=== PATIENT | male | born 1955 | race Caucasian/White ===

== ENCOUNTER 2019-09-29 16:22 | Observation (INO) | payer OTHER ==
[2019-09-29 16:44] VITALS: BMI 25.0
--- NOTE | 2019-09-29 16:44 | PDOC ---
History of Present Illness - General Chief Complaint: Chest Pain Stated Complaint: CP Time Seen by Provider: 09/29/19 16:43 Past History - Medical History Allergies/Adverse Reactions: Allergies Allergy/AdvReac Type Severity Reaction Status Date / Time No Known Allergies Allergy Verified 09/29/19 16:32 Home Medications: Ambulatory Orders Amlodipine Besylate [Norvasc -] 10 mg PO DAILY 09/29/19 Aspirin [Ecotrin] 81 mg PO DAILY 09/29/19 Atorvastatin Ca [Lipitor] 80 mg PO HS 09/29/19 Levetiracetam 500 mg PO BID 09/29/19 Metoprolol Tartrate [Lopressor -] 25 mg PO BID 09/29/19 Sertraline HCl [Zoloft -] 1.5 tab PO DAILY 09/29/19 Cardiac Disorders: Yes (CAD) COPD: No Diabetes: Yes (TYPE 1) HTN: Yes - Surgical History Cardiac Surgery: Yes (CARDIAC STENT) - Psycho-Social/Smoking History Smoking History: Current every day smoker Have you smoked in the past 12 months: Yes Number of Cigarettes Smoked Daily: 20 Information on smoking cessation initiated: No - Substance Abuse Hx (Audit-C & DAST Scrn) How often the patient has a drink containing alcohol: 4 0r more times/wk Number of drinks the patient has on a typical day: 10 or more How often the patient has six or more drinks on one occasion: Daily or almost daily Score: In Men: 4 or > Positive; In Women: 3 or > Positive: 12 Screen Result (Pos requires Nsg. Audit-10AR): Positive In the last yr the pt used illegal drug/Rx for NonMed reason: No Score: Yes response is considered Positive: 0 Screen Result (Positive result requires Nsg. DAST-10): Negative *Physical Exam - Vital Signs Last Vital Signs Temp Pulse Resp BP Pulse Ox 98.5 F 95 H 18 132/90 100 09/29/19 16:32 09/29/19 16:32 09/29/19 16:32 09/29/19 16:32 09/29/19 16:32 Heart Score/ECG Review - History History: Moderately suspicious - Electrocardiogram EKG: Non specific repolarization disturbance - Age Age: 45-65 - Risk Factors Risk Factors Heart Score: Yes Hx Hypercholesterolemia, Yes Hx Hypertension, Yes Hx Diabetes, Yes Smoking History Based on the list above the patient has:: >/=3 risk factors or Hx atherosclerotic disease - Troponin Troponin: </= normal limit - Score Heart Score - Total: 5 ED Treatment Course - LABORATORY CBC & Chemistry Diagram: 09/29/19 17:15 09/29/19 17:15 Medical Decision Making - Medical Decision Making 09/29/19 16:56 63yo M hx HTN, HLD, IDDM, CAD s/p stents, alcohol abuse (two 40s of beer daily, last drink yesterday, no hx withdrawal seizures), smoking, and anxiety sent from [facility] requesting detox c/o 3 weeks of intermittent substernal pressure-type chest pain, SOB, diaphoresis, palpitations, anxiety, and lightheadedness. Today endorses withdrawal-like sx including tremors, nausea and vomiting, diaphoresis, anxiety, and mild headache. Endorses hx heroine abuse, last 1 year ago. Denies current drug use. Denies falls, head injury. Hungry, hasn't eaten today. PCP - can't remember her name, Lazaro on rx bottles ROS: Constitutional: Positive for diaphoresis. Negative for chills, fever, fatigue. HENT: Negative for sore throat, rhinorrhea, congestion. Eyes: Negative for visual disturbance. Respiratory: Positive for shortness of breath. Negative for cough, and wheezing. Cardiovascular: Positive for chest pain, palpitations. Negative for leg swelling. Gastrointestinal: Positive for nausea, and vomiting. Negative for abdominal pain, blood in stool, constipation, diarrhea. Genitourinary: Negative for dysuria, flank pain, and hematuria. Musculoskeletal: Negative for myalgias, back pain, and neck pain. Skin: Negative for rash. Neurological: Positive for light-headedness, headache. Negative for dizziness, vertigo, syncope, weakness, numbness. Psychiatric/Behavioral: Positive for alcohol use. Negative for behavioral problems and confusion. PE: Gen: Alert, NAD, comfortable-appearing, tremors, diaphoretic HEENT: PERRL, EOMI, dry MM, NCAT. No conjunctival pallor. Sclera are non- icteric. Oropharynx is clear. +tongue fasciculations CV: Regular rate and rhythm. No murmurs, rubs, or gallops. PULM: No resp distress. CTAB, no wheezes, rales, or rhonchi. ABD: soft, NT/ND, no rebound tenderness or guarding, no CVA tenderness. BACK: No TTP of c/t/l-spine. No step-offs or deformities. MSK: No bony deformities. 2+ pulses in all extremities. NEURO: Slight delay in responses and slowed speech. AAOx3. PERRL. CN 2-12 intact. 5/5 strength in all extremities. Sensation to light touch intact in all extremities. No pronator drift. No dysmetria. No dysdiadochokinesia. No abnormal nystagmus. Normal gait. EXTREMITIES: No cyanosis. No clubbing. No edema. No calf tenderness. PSYCH: Normal mood and thought pattern. SKIN: Warm and diaphoretic. Normal capillary refill. No rashes. No jaundice. MDM: 63yo M hx HTN, HLD, IDDM, CAD s/p stents, alcohol abuse (two 40s of beer daily, last drink yesterday, no hx withdrawal seizures), smoking, and anxiety sent from [facility] requesting detox with 1 day withdrawal-like sx and 3 weeks of intermittent substernal pressure-type chest pain, SOB, diaphoresis, palpitations, anxiety, and lightheadedness. Hemodynamically stable, afebrile, neurologically intact. Ddx: alcohol withdrawal, intox, ACS/AK (HEART score 5), arrhythmia, anxiety, PNA, COPD exacerbation, thyroid pathology, UTI, infection, metabolic derangement, anemia -EKG -CXR -CBC,CMP,Mg,Phos,Cardiac profile,TSH,alcohol,UA/UC -IVF -BGM -Aspirin -Librium 100 -Dispo: pending workup and reassessment, likely d/c home 09/29/19 18:32 Labs reviewed. Notable for WBC 16.4, K 3.0, Phos 2.3, Gluc 62, elevated AST/ALT/ALP/Tbili -Pt eating food -K-dur 40 -Phos-Na-K packet EKG reviewed: normal sinus rhythm, 91bpm, normal axis, normal intervals,QTc 452ms, nonspecific ST abnormality, no ST elevations or depressions, no priors for comparison CXR reviewed: No acute pathology. 3mm nodule in R lung apex laterally nonspecific and likely granuloma. Admit for ACS eval and withdrawal Discharge - Discharge Information Problems reviewed: Yes Clinical Impression/Diagnosis: Alcohol withdrawal, Chest pain Condition: Stable - Admission Yes - Follow up/Referral - Patient Discharge Instructions - Post Discharge Activity
[2019-09-29] MEDS ORDERED: SODIUM CHLORIDE 0.9% 500 ML INFUS.BAG IV ONE (16:56)
[2019-09-29] MEDS ORDERED: LORazepam 2 MG TABLET PO SCH (17:00)
[2019-09-29] MEDS ORDERED: chlordiazePOXIDE HCL 25 MG CAPSULE PO ONE (17:05)
[2019-09-29 17:29] LABS: BASO % 0.3 % (0-2.0); EOS % 0.2 % (0-4.5); HEMATOCRIT 40.5 % (35.4-49); HEMOGLOBIN 13.9 GM/dL (11.7-16.9); LYMPH % 14.4 % (8-40); MCH 31.1 pg (25.7-33.7); MCHC 34.2 g/dl (32.0-35.9); MEAN PLT VOLUME 9.3 fl (7.5-11.1); MONO % 7.2 % (3.8-10.2); NEUT % 77.9 % (42.8-82.8); PLATELET COUNT 236 K/MM3 (134-434); RBC 4.46 M/mm3 (4.00-5.60); RDW 14.4 % (11.9-15.9); WHITE BLOOD COUNT 16.4 K/mm3 (4.0-10.0)
[2019-09-29 17:39] LABS: INR 0.98 (0.83-1.09); PROTHROMBIN TIME (PATIENT) 11.6 SEC (9.7-13.0)
[2019-09-29 17:41] LABS: ACTIVATED PTT 17.6 SECONDS (25.2-36.5)
[2019-09-29] MEDS ORDERED: chlordiazePOXIDE HCL 25 MG CAPSULE ONE (17:51)
--- NOTE | 2019-09-29 17:55 | PDOC ---
Documentation entered by Sarthak Brown SCRIBE, acting as scribe for Eh Magana MD. Eh Magana MD: This documentation has been prepared by the Stephanie metcalf Nirvannie, SCRIBE, under my direction and personally reviewed by me in its entirety. I confirm that the documentation accurately reflects all work, treatment, procedures, and medical decision making performed by me. Attending Attestation - Resident Resident Name: Jenny Izaguirre - ED Attending Attestation I have performed the following: I have examined & evaluated the patient, The case was reviewed & discussed with the resident, I agree w/resident's findings & plan, Exceptions are as noted - HPI HPI: 09/29/19 17:33 The patient is a 63 year old male with a significant past medical history of HTN, HLD, possible DM, CAD (s/p cardiac stenting), alcohol abuse (two 40s of beer daily, last drink yesterday, no history of withdrawal seizures), anxiety, and medication noncompliance who presents to the ED via EMS from [facility] with 3 weeks of intermittent, pressure like, substernal chest pain with associated shortness of breath, diaphoresis, palpitations, and lightheadedness. - Physicial Exam PE: 09/29/19 17:55 See resident exam - Medical Decision Making 09/29/19 17:55 63 M with chest pain. Will r/o ACS given significant cardiac history. Pt also with mild ETOH withdrawal. - Labs, trop - CXR - Librium Discharge - Discharge Information Problems reviewed: Yes Clinical Impression/Diagnosis: Alcohol withdrawal, Chest pain Condition: Stable - Additional Discharge Information - Follow up/Referral - Patient Discharge Instructions - Post Discharge Activity
[2019-09-29 18:15] LABS: ALBUMIN 3.2 g/dl (3.4-5.0); ALK PHOS 182 U/L (45-117); ANION GAP 11 MMOL/L (8-16); BILIRUBIN,TOTAL 1.2 mg/dL (0.2-1); BLOOD UREA NITROGEN 19.7 mg/dL (7-18); CALCIUM 8.7 mg/dL (8.5-10.1); CHLORIDE 107 mmol/L (98-107); CO2 23 mmol/L (21-32); CREATININE 0.7 mg/dL (0.55-1.3); GLUCOSE,RANDOM 62 mg/dL (74-106); LIPASE 54 U/L (73-393); MAGNESIUM 1.9 mg/dL (1.8-2.4); PHOSPHOROUS 2.3 mg/dL (2.5-4.9); SGOT/AST 362 U/L (15-37); SGPT/ALT 147 U/L (13-61); SODIUM 141 mmol/L (136-145); TOT PROT 5.8 g/dl (6.4-8.2)
[2019-09-29] MEDS ORDERED: NAPH,MB-DB/K PH,MBDB POWDER PACKET PO ONE (18:36)
[2019-09-29] MEDS ORDERED: POTASSIUM CHLORIDE TABS 20 MEQ TABLET.ER (FP) PO ONE ×2 (18:36→18:48)
[2019-09-29] MEDS ORDERED: ASPIRIN 81 MG CHEWABLE TABLETS PO ONE (18:37)
[2019-09-29] MEDS ORDERED: D5-1/2NS+40 MEQ KCL - 40 MEQ/1,000 ML INFUS.BAG IV SCH (18:45)
[2019-09-29] MEDS ORDERED: ASPIRIN COATED 81 MG TABLET.EC ONE (18:48)
[2019-09-29] MEDS ORDERED: NAPH,MB-DB/K PH,MBDB POWDER PACKET ONE (18:48)
--- NOTE | 2019-09-29 19:43 | PN ---
Teaching Attending Note Name of Resident: Tesfaye Rae ATTENDING PHYSICIAN STATEMENT I saw and evaluated the patient. I reviewed the resident's note and discussed the case with the resident. I agree with the resident's findings and plan as documented. SUBJECTIVE: Patient is a 63 year old man with a PMH of HTN, HLD, Insulin-treatd DM, CAD (s/p stents), Alcohol abuse (two 40s of beer daily, last drink yesterday, no history of withdrawal seizures), Heroin abuse, Tobacco use and Anxiety sent from [facility] with 3 weeks of intermittent substernal pressure-type chest pain, SOB, diaphoresis, palpitations, anxiety, and lightheadedness. Today endorses withdrawal-like symptoms including tremors, nausea and vomiting, diaphoresis, anxiety, and mild headache. Denies current drug use. Denies falls, head injury. Wants to eat. 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 Lives alone. No sick contacts or recent travels. Family history is unremarkable. OBJECTIVE: Alert Vital Signs Period Temp Pulse Resp BP Sys/Taylor Pulse Ox Last 24 Hr 98.0 F-98.5 F 87-95 18 117-132/74-90 97-100 HEENT: No Jaundice, eye redness or discharge, PERRLA, EOMI. Normocephalic, atraumatic. External ears are normal and hearing is grossly intact. No nasal discharge. Neck: Supple, nontender. No palpable adenopathy or thyromegaly. No JVD Chest: Good effort. Clear to auscultation and percussion. Heart: Regular. No S3, rub or murmur Abdomen: Not distended, soft, nontender and no HSM. No rebound or guarding. Normal bowel sounds. Ext: Peripheral pulses intact. No leg edema. Skin: Warm and dry. No petechiae, rash or ecchymosis. Neuro: Alert. Oriented x3. No asterexis or tremors. CN 2-12 grossly intact. Sensation grossly intact in all four extremities and DTR are symmetric. Psych: Appropriate mood and affect. Good insight. Current Medications Generic Name Dose Route Start Last Admin Trade Name Freq PRN Reason Stop Dose Admin Albuterol Sulfate 2 puff 09/29/19 21:11 Ventolin Hfa Inhaler - IH Q4H PRN SHORT OF BREATH/WHEEZING Enoxaparin Sodium 40 mg 09/30/19 10:00 Lovenox - SQ DAILY [facility] Folic Acid 1 mg 09/30/19 10:00 Folic Acid - PO DAILY [facility] Dextrose/Sodium Chloride 40 meq in 1,000 mls @ 75 mls/hr 09/29/19 18:45 D5-1/2ns+40 Meq Kcl - IV ASDIR [facility] Insulin Aspart 1 vial 09/29/19 22:00 Novolog Vial Sliding Scale - SQ ACHS [facility] Protocol Lorazepam 2 mg 09/29/19 23:00 Ativan PO 09/30/19 23:01 0500,1100,1700,2300 [facility] Lorazepam 0.5 mg 10/02/19 05:00 Ativan - PO 10/02/19 23:01 Q6H [facility] Lorazepam 0.5 mg 10/02/19 00:00 Ativan - PO 10/02/19 23:59 Q4H PRN Symptoms of Withdrawal Lorazepam 1 mg 10/01/19 05:00 Ativan - PO 10/01/19 23:01 0500,1100,1700,2300 [facility] Lorazepam 1 mg 09/29/19 20:49 Ativan - PO 10/01/19 23:59 Q4H PRN Symptoms of Withdrawal Lorazepam 0.5 mg 10/03/19 05:00 Ativan - PO 10/03/19 05:01 ONCE ONE Multivitamins/Minerals/Vitamin C 1 tab 09/30/19 10:00 Tab-A-Vit - PO DAILY [facility] Thiamine HCl 100 mg 09/30/19 10:00 Vitamin B1 - PO DAILY [facility] Home Medications Medication Instructions Recorded Amlodipine Besylate [Norvasc -] 10 mg PO DAILY 09/29/19 Aspirin [Ecotrin] 81 mg PO DAILY 09/29/19 Atorvastatin Ca [Lipitor] 80 mg PO HS 09/29/19 Levetiracetam 500 mg PO BID 09/29/19 Metoprolol Tartrate [Lopressor -] 25 mg PO BID 09/29/19 Sertraline HCl [Zoloft -] 1.5 tab PO DAILY 09/29/19 Abnormal Lab Results 09/29/19 09/29/19 09/29/19 17:15 17:15 17:15 WBC 16.4 H Absolute Neuts (auto) 12.8 H PTT (Actin FS) 17.6 L Potassium 3.0 L BUN 19.7 H Random Glucose 62 L Phosphorus 2.3 L Total Bilirubin 1.2 H AST 362 H ALT 147 H Alkaline Phosphatase 182 H Total Protein 5.8 L Albumin 3.2 L Lipase 54 L ASSESSMENT AND PLAN: 1. Chest pain - Has risk factors for ACS. EKG shows NSR at 91/minute and QTc [address]-T depression in V3-V6 - no old EKG available for comparison. Initial troponin is negative. Will admit to telemetry, trend troponin, get ECHO, TSH, urine toxicology, fasting lipids and consult Cardiology. Leukocytosis is unexplained. Need to rule out biliary tract infection. CXR shows increased interstitial markings in the lower lung zones and a nodule in the right lung apex. Consult Pulmonary. Will get stat urinalysis, repeat CBC, get CT chest/abdomen/pelvis, trend LFTs, hepatitis serology, blood cultures and NH3 level. Viral testing for COVID-19 ordered and patient placed on airborne, droplet and contact isolation. Hypokalemia and hypophosphatemia likely related to urinary wasting due to alcoholism. Will check serum magnesium, give IV and PO KCL, and Neutraphos. 2. Alcohol abuse - Will implement CIWA Ativan alcohol withdrawal protocol and do neurochecks. Implement seizure, fall and aspiration precautions. Treat with IV Banana bag, thiamine and folic acid. Monitor and replete electrolytes (Ca,Mg,K,P). Counseled patient about abstaining from alcohol. Will consult international specialist and refer to alcohol detox upon discharge. 3. Hypoalbuminemia - Possibly due to combined effects of malnutrition and inflammation associated with comorbid conditions. Will ensure adequate dietary protein intake and also consult slubber machine operator. Urinalysis pending. 4. DM For now, we will hold the home diabetes drugs and implement sliding scale insulin regimen. Provide comprehensive diabetes care with patient teaching and counseling about the importance of adherence to prescribed diabetes regimen, euglycemia, eye care and foot care. 5. Tobacco Use Counseled on risks associated with tobacco use. We will provide patient all the necessary assistance to facilitate smoking cessation and prescri be Nicotine patch. 6. Hypertension Will restart suitable outpatient antihypertensive drugs when clinically appropriate. Subsequently, will revise regimen to ensure odsne-hna-aibam excellent BP control. Patient counseled on the injurious effects of uncontrolled hypertension. Nonpharmacologic measures to control hypertension like weight loss, salt restriction and exercise stressed. Importance of adherence to treatment regimen and attainment of normotension emphasized. 7. DVT prophylaxis - Lovenox 40 mg SQ q 24 hours. 8. Advance directives - Full code
[2019-09-29] MEDS ORDERED: LORazepam 1 MG TABLET PO PRN ×2 (20:49)
--- NOTE | 2019-09-29 20:53 | HP ---
CHIEF COMPLAINT: Chest pain, SOB PCP: Lazaro HISTORY OF PRESENT ILLNESS: 63M w/ pmh of HTN, HLD, IDDM, chronic tobacco usage, chronic EtOH usage, CAD(s/p stents x3, ~2015 [place]) transferred from [facility] for complaint of chest pain and SOB. Complains of focal, nonradiating, 5 of 10 lower sternal chest pain; has been intermittent for last 3mo. Onset at rest or with activity. Pain lasts ~10-15mins and spontaneously resolves. Thinks that he has had SOB with going up stairs for last 3mo. After his stents, he states he was compliant with ASA+plavix x1yr. Has been taking daily ASA. Last stress test was 5ys prior, at [place]. Does not see a enterprise resource planner on a regular basis. Doesn't check his his BGM at home on a regular basis, sometimes just once a week. Was seeking Rehab at [facility], for EtOH usage. States that he "couldn't take it anymore". Denies having sought rehab prior. Last drink was 2 days prior. Usually drinks 40oz x2 daily, since he was ~21y/o. Has tremors when not drinking. Sometimes will drink first thing in the morning. Had one seizure, in ~2018, not related to drinking. States that he hasn't eaten well in a few days and is very hungry. Lives in a house by himself. Has a brother that lives nearby. 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 Has [employer] Insurance. ER course was notable for: (1) Tmax 98.5, HR 116, BP 132/90 (2) WBC 16.4(neutrophils 77.9) (3) K 3.0, Mg 1.9, Phos 2.3 (4) Tbil 1.2, AST/ALT 362/147 (5) Ua Neg LE, neg nitrite (6) HEART 5 (7) CIWA 20([address] [facility]) (8) phosph-NaK, NS 1L, librium 100mg, KDur, ASA 324mg, D51/2 NS Recent Travel: denies PAST MEDICAL HISTORY: as above PAST SURGICAL HISTORY: denies Social History: Smokinppd x20ys Alcohol: 40oz x2, since 21y/o Drugs: distant heroin(sniffed), distant cocaine Allergies No Known Allergies Allergy (Verified 09/29/19 16:32) HOME MEDICATIONS: Home Medications Medication Instructions Recorded Amlodipine Besylate [Norvasc -] 10 mg PO DAILY 09/29/19 Aspirin [Ecotrin] 81 mg PO DAILY 09/29/19 Atorvastatin Ca [Lipitor] 80 mg PO HS 09/29/19 Levetiracetam 500 mg PO BID 09/29/19 Metoprolol Tartrate [Lopressor -] 25 mg PO BID 09/29/19 Sertraline HCl [Zoloft -] 1.5 tab PO DAILY 09/29/19 REVIEW OF SYSTEMS CONSTITUTIONAL: anxious Absent: fever, chills, diaphoresis, generalized weakness, malaise, loss of appetite, weight change HEENT: posterior neck pain Absent: rhinorrhea, nasal congestion, throat pain, throat swelling, difficulty swallowing, mouth swelling, ear pain, eye pain, visual changes CARDIOVASCULAR: lower sternal CP Absent: syncope, palpitations, irregular heart rate, lightheadedness, peripheral edema RESPIRATORY: SOB, nonproductive cough Absent: cough, shortness of breath, dyspnea with exertion, orthopnea, wheezing, stridor, hemoptysis GASTROINTESTINAL: Absent: abdominal pain, abdominal distension, nausea, vomiting, diarrhea, constipation, melena, hematochezia GENITOURINARY: Absent: dysuria, frequency, urgency, hesitancy, hematuria, flank pain, genital pain MUSCULOSKELETAL: Absent: myalgia, arthralgia, joint swelling, back pain SKIN: Absent: rash, itching, pallor HEMATOLOGIC/IMMUNOLOGIC: Absent: easy bleeding, easy bruising, lymphadenopathy, frequent infections ENDOCRINE: Absent: unexplained weight gain, unexplained weight loss, heat intolerance, cold intolerance NEUROLOGIC: Absent: headache, focal weakness or paresthesias, dizziness, unsteady gait, seizure, mental status changes, bladder or bowel incontinence PSYCHIATRIC: Absent: anxiety, depression, suicidal or homicidal ideation, hallucinations. PHYSICAL EXAMINATION Vital Signs - 24 hr 09/29/19 09/29/19 16:32 19:50 Temperature 98.5 F 98.0 F Pulse Rate 95 H Pulse Rate [ 87 Left Radial] Respiratory 18 Rate Blood Pressure 132/90 Blood Pressure 117/74 [Right Arm] O2 Sat by Pulse 100 97 Oximetry (%) GENERAL: Awake, alert, and fully oriented, in no acute distress. Disshelved, silviano-appearing. Mildly somnolent HEAD: Normal with no signs of trauma. EYES: sclera anicteric, conjunctiva clear. No lid lag. EARS, NOSE, THROAT: Ears normal, nares patent, oropharynx clear without exudates . Moist mucous membranes. Poor dentition NECK: Normal range of motion, supple without lymphadenopathy, JVD, or masses. LUNGS: B/l expiratory wheezes at the bases. No crackles. No accessory muscle use. HEART: Regular rate and rhythm, normal S1 and S2 without murmur, rub or gallop. ABDOMEN: Soft, nontender, not distended, no guarding, no rebound. Dark conner bedside urine in urinal MUSCULOSKELETAL: Normal range of motion at all joints. No bony deformities or tenderness. No CVA tenderness. UPPER EXTREMITIES: 2+ pulses, warm, well-perfused. No cyanosis. No clubbing. No peripheral edema. LOWER EXTREMITIES: 2+ pulses, warm, well-perfused. No calf tenderness. No peripheral edema. Dirty interweb spaces at the feet NEUROLOGICAL: Cranial nerves II-XII intact. CIWA: 19([place], moist forehead, tremors, anxiety) SKIN: Warm, dry, normal turgor, no rashes or lesions noted, normal capillary refill. Laboratory Results - last 24 hr 09/29/19 09/29/19 09/29/19 17:00 17:15 17:15 WBC 16.4 H RBC 4.46 Hgb 13.9 Hct 40.5 MCV 91.0 MCH 31.1 MCHC 34.2 RDW 14.4 Plt Count 236 MPV 9.3 Absolute Neuts (auto) 12.8 H Neutrophils % 77.9 Lymphocytes % 14.4 Monocytes % 7.2 Eosinophils % 0.2 Basophils % 0.3 Nucleated RBC % 0 PT with INR 11.60 INR 0.98 PTT (Actin FS) 17.6 L Sodium Potassium Chloride Carbon Dioxide Anion Gap BUN Creatinine Est GFR (CKD-EPI)AfAm Est GFR (CKD-EPI)NonAf POC Glucometer 75 Random Glucose Calcium Phosphorus Magnesium Total Bilirubin AST ALT Alkaline Phosphatase Creatine Kinase Troponin I Total Protein Albumin Lipase TSH Alcohol, Quantitative 09/29/19 17:15 WBC RBC Hgb Hct MCV MCH MCHC RDW Plt Count MPV Absolute Neuts (auto) Neutrophils % Lymphocytes % Monocytes % Eosinophils % Basophils % Nucleated RBC % PT with INR INR PTT (Actin FS) Sodium 141 Potassium 3.0 L Chloride 107 Carbon Dioxide 23 Anion Gap 11 BUN 19.7 H Creatinine 0.7 Est GFR (CKD-EPI)AfAm 117.22 Est GFR (CKD-EPI)NonAf 101.14 POC Glucometer Random Glucose 62 L Calcium 8.7 Phosphorus 2.3 L Magnesium 1.9 Total Bilirubin 1.2 H AST 362 H ALT 147 H Alkaline Phosphatase 182 H Creatine Kinase 116 Troponin I < 0.02 Total Protein 5.8 L Albumin 3.2 L Lipase 54 L TSH 1.69 Alcohol, Quantitative < 3 ASSESSMENT/PLAN: 63M w/ pmh of HTN, HLD, IDDM, chronic tobacco usage, chronic EtOH usage, CAD(s/p stents x3, ~2014 [place]) transferred from [facility] for complaint of nonradiating lower sternal chest pain and SOB. Pain lasts ~10-15mins and spontaneously resolves. Thinks that he has had SOB with going up stairs for last 3mo. Last drink was 2 days prior. Usually drinks 40oz x2 daily. Admitted for ACS r/o, EtOH withdrawal. #ACS r/o --low suspicion for ACS > HEART 5 > troponin neg x1 --rpt trop pending > echo --pending - Cardio Consult([facility]) #EtOH withdrawal > CIWA 19 - Ativan protocol - MVI, thiamine, folate, mIVF #leukocytosis --no obvious infectious source, possibly reactive to withdrawal > Tmax 98.5, HR 116, BP 132/90 > WBC 16.4(neutrophils 77.9) --rpt CBC pending > BCX --pending > UCX --pending > UA: neg LE, neg Nitrite - holding off on abx for now #elevated LFTs --probably 2/2 to chronic EtOH usage > Tbil 1.2, AST/ALT 362/147 > CT A/P: negative pathology #expiratory wheeze - albuterol PRN #incidental Right lung nodule > CXR(09/29/19): R lung apex 3mm nodule, probable granuloma - outpt f/u, should consider low-dose screening CT - tobacco cessation counseling #IDDM - ISS for now - pt is not sure how much ?glargine ?15U he takes FEN - NPO, in case need for stress test - NS @83 DVT PPX - lovenox Family Medical History Family History: Denies, Unremarkable Visit type - Emergency Visit Emergency Visit: Yes ED Registration Date: 09/29/19 Care time: The patient presented to the Emergency Department on the above date and was hospitalized for further evaluation of their emergent condition. - New Patient This patient is new to me today: Yes Date on this admission: 10/01/19 - Critical Care Critical Care patient: No ATTENDING PHYSICIAN STATEMENT I saw and evaluated the patient. I reviewed the resident's note and discussed the case with the resident. I agree with the resident's findings and plan as documented. SUBJECTIVE: OBJECTIVE: ASSESSMENT AND PLAN:
[2019-09-29] MEDS ORDERED: ALBUTEROL SO4 HFA INHALER IH PRN (21:11)
[2019-09-29 21:38] LABS: URINE APPEARANCE CLEAR; URINE BILIRUBIN NEGATIVE (NEGATIVE); URINE COLOR YELLOW; URINE GLUCOSE (UA) TRACE (NEGATIVE); URINE KETONE NEGATIVE (NEGATIVE); URINE LEUK ESTERASE NEGATIVE (NEGATIVE); URINE NITRITE NEGATIVE (NEGATIVE); URINE PROTEIN NEGATIVE (NEGATIVE)
[2019-09-29] MEDS ORDERED: LORazepam 0.5 MG TABLET ONE (22:13)
[2019-09-29] MEDS: INSULIN SLIDING SCALE (NOVOLOG) 1 VIAL SQ SCH (22:19)
[2019-09-29] MEDS: LORazepam 2 MG TABLET PO SCH (22:20)
[2019-09-29] MEDS ORDERED: SODIUM CHLORIDE 1,000 ML IV SCH (22:30)
[2019-09-30] MEDS ORDERED: POTASSIUM CHLORIDE TABS 20 MEQ TABLET.ER (FP) PO ONE ×2 (00:03→14:39)
[2019-09-30 02:07] LABS: BASO % 0.1 % (0-2.0); EOS % 1.1 % (0-4.5); HEMATOCRIT 38.3 % (35.4-49); LYMPH % 25.7 % (8-40); MCH 31.3 pg (25.7-33.7); MCHC 33.9 g/dl (32.0-35.9); MEAN CELL VOLUME 92.2 fl (80-96); MEAN PLT VOLUME 9.1 fl (7.5-11.1); MONO % 8.5 % (3.8-10.2); NEUT % 64.6 % (42.8-82.8); PLATELET COUNT 196 K/MM3 (134-434); RBC 4.15 M/mm3 (4.00-5.60); RDW 14.2 % (11.9-15.9); WHITE BLOOD COUNT 9.3 K/mm3 (4.0-10.0)
[2019-09-30] MEDS ORDERED: KCL 10 MEQ IVPB 30 MEQ/300 ML INFUS.BAG IVPB ONE (02:13)
[2019-09-30] MEDS ORDERED: POTASSIUM CHLORIDE TABS 10 MEQ TABLET.ER (FP) ONE (02:13)
[2019-09-30] MEDS: KCL 10 MEQ IVPB 10 MEQ/100 ML INFUS.BAG IVPB SCH ×3 (02:20→04:26)
[2019-09-30] MEDS ORDERED: LORazepam 0.5 MG TABLET ONE ×4 (05:27→20:06)
[2019-09-30] MEDS: LORazepam 2 MG TABLET PO SCH ×3 (05:35→16:20)
[2019-09-30] MEDS: INSULIN SLIDING SCALE (NOVOLOG) 1 VIAL SQ SCH ×4 (07:50→22:35)
[2019-09-30] MEDS ORDERED: THIAMINE HCL 200 MG/2 ML VIAL IVPB ONE (08:12)
[2019-09-30 08:19] LABS: BASO % 0.1 % (0-2.0); EOS % 1.9 % (0-4.5); HEMATOCRIT 37.8 % (35.4-49); HEMOGLOBIN 12.7 GM/dL (11.7-16.9); LYMPH % 29.3 % (8-40); MCH 31.1 pg (25.7-33.7); MCHC 33.6 g/dl (32.0-35.9); MEAN CELL VOLUME 92.3 fl (80-96); MEAN PLT VOLUME 9.4 fl (7.5-11.1); MONO % 8.7 % (3.8-10.2); PLATELET COUNT 186 K/MM3 (134-434); RDW 13.9 % (11.9-15.9); WHITE BLOOD COUNT 7.7 K/mm3 (4.0-10.0)
[2019-09-30 08:26] LABS: ALBUMIN 2.8 g/dl (3.4-5.0); ALK PHOS 179 U/L (45-117); ANION GAP 9 MMOL/L (8-16); BILIRUBIN,TOTAL 1.4 mg/dL (0.2-1); BLOOD UREA NITROGEN 11.4 mg/dL (7-18); CALCIUM 7.7 mg/dL (8.5-10.1); CHLORIDE 105 mmol/L (98-107); CHOLESTEROL 92 mg/dL (50-200); CO2 24 mmol/L (21-32); CREATININE 0.6 mg/dL (0.55-1.3); GLUCOSE,RANDOM 168 mg/dL (74-106); HDL CHOLESTEROL 56 mg/dL (40-60); LDL CHOLESTEROL (ONLY SJRH) 21 mg/dL (5-100); MAGNESIUM 1.7 mg/dL (1.8-2.4); PHOSPHOROUS 2.3 mg/dL (2.5-4.9); POTASSIUM 3.3 mmol/L (3.5-5.1); SGOT/AST 305 U/L (15-37); SGPT/ALT 142 U/L (13-61); SODIUM 138 mmol/L (136-145); TOT PROT 5.1 g/dl (6.4-8.2); TRIGLYCERIDES 107 mg/dL (0-150)
[2019-09-30] MEDS ORDERED: METOPROLOL TARTRATE 25 MG TABLET (FP) ONE (09:57)
[2019-09-30] MEDS ORDERED: MULTIVITAMINS (DAILY MVI) TABLET (FP) ONE (09:57)
[2019-09-30] MEDS ORDERED: FOLIC ACID 1 MG TABLET (FP) ONE (09:58)
[2019-09-30] MEDS ORDERED: THIAMINE HCL 200 MG/2 ML VIAL ONE (09:58)
[2019-09-30] MEDS ORDERED: THIAMINE HCL 100 MG TABLET (FP) ONE (09:58)
[2019-09-30] MEDS ORDERED: amLODIPine BESYLATE 5 MG TABLET (FP) ONE (09:58)
[2019-09-30] MEDS ORDERED: levETIRAcetam 500 MG TABLET (FP) PO ONE (09:58)
[2019-09-30] MEDS ORDERED: ENOXAPARIN NA (PORCINE) 40 MG/0.4 ML DISP.SYRIN SQ ONE (09:59)
[2019-09-30] MEDS: METOPROLOL TARTRATE 25 MG TABLET (FP) PO SCH ×2 (10:05→22:35)
[2019-09-30] MEDS: ASPIRIN COATED 81 MG TABLET.EC PO SCH (10:05)
[2019-09-30] MEDS: FOLIC ACID 1 MG TABLET (FP) PO SCH (10:05)
[2019-09-30] MEDS: levETIRAcetam 500 MG TABLET (FP) PO SCH ×2 (10:05→22:34)
[2019-09-30] MEDS: ENOXAPARIN NA (PORCINE) 40 MG/0.4 ML DISP.SYRIN SQ SCH (10:05)
[2019-09-30] MEDS: amLODIPine BESYLATE 10 MG TABLET (FP) PO SCH (10:06)
[2019-09-30] MEDS: MULTIVITAMINS (DAILY MVI) TABLET (FP) PO SCH (10:06)
[2019-09-30] MEDS: THIAMINE HCL 100 MG TABLET (FP) PO SCH (10:07)
[2019-09-30] MEDS: SODIUM CHLORIDE 1,000 ML IV SCH (10:27)
[2019-09-30] MEDS ORDERED: LISINOPRIL 5 MG TABLET (FP) ONE (10:29)
[2019-09-30] MEDS: LISINOPRIL 5 MG TABLET (FP) PO SCH (10:33)
--- NOTE | 2019-09-30 11:56 | EKG ---
Test Reason : Blood Pressure : / mmHG Vent. Rate : 091 BPM Atrial Rate : 091 BPM P-R Int : 176 ms QRS Dur : 094 ms QT Int : 368 ms P-R-T Axes : 048 036 029 degrees QTc Int : 452 ms NORMAL SINUS RHYTHM NONSPECIFIC ST ABNORMALITY ABNORMAL ECG NO PREVIOUS ECGS AVAILABLE Confirmed by CANDE BROWNLEE MD ([id number]) on 09/30/2019 11:55:51 AM Referred By: Confirmed By:CANDE BROWNLEE MD
--- NOTE | 2019-09-30 14:12 | CON.CARD ---
Cardiology Consult (text) - Consultation Consultation Note: cc: sent from [facility] for etoh detox hpi: 63 m hx htn, hld, dm, cad s/p remote pci sent for etoh detox. Pt denies cp sob palps dizzy loc pnd orthopnea le edema. Poor historian. pmh: per hpi psh: no surgery social: +tob, +etoh abuse ros: unable to obtain 2/2 ams fam: unknown meds: Ambulatory Orders Amlodipine Besylate [Norvasc -] 10 mg PO DAILY 09/29/19 Aspirin [Ecotrin] 81 mg PO DAILY 09/29/19 Atorvastatin Ca [Lipitor] 80 mg PO HS 09/29/19 Levetiracetam 500 mg PO BID 09/29/19 Metoprolol Tartrate [Lopressor -] 25 mg PO BID 09/29/19 Sertraline HCl [Zoloft -] 1.5 tab PO DAILY 09/29/19 pe: Vital Signs Period Temp Pulse Resp BP Sys/Taylor Pulse Ox Last 24 Hr 98.0 F-98.5 F 73-96 16-25 102-145/50-97 95-198 nad no jvd rrr s1s2 no mrg ctabl nl eff awake, confused no le e/c/c abd nt nd pos bs no jaundice diaphoresis pos dp pt no carotid bruits Laboratory Last Values WBC 7.7 K/mm3 (4.0-10.0) 09/30/19 06:19 RBC 4.10 M/mm3 (4.00-5.60) 09/30/19 06:19 Hgb 12.7 GM/dL (11.7-16.9) 09/30/19 06:19 Hct 37.8 % (35.4-49) 09/30/19 06:19 MCV 92.3 fl (80-96) 09/30/19 06:19 MCH 31.1 pg (25.7-33.7) 09/30/19 06:19 MCHC 33.6 g/dl (32.0-35.9) 09/30/19 06:19 RDW 13.9 % (11.9-15.9) 09/30/19 06:19 Plt Count 186 K/MM3 (134-434) 09/30/19 06:19 MPV 9.4 fl (7.5-11.1) 09/30/19 06:19 Absolute Neuts (auto) 4.6 K/mm3 (1.5-8.0) 09/30/19 06:19 Neutrophils % 60.0 % (42.8-82.8) 09/30/19 06:19 Lymphocytes % 29.3 % (8-40) 09/30/19 06:19 Monocytes % 8.7 % (3.8-10.2) 09/30/19 06:19 Eosinophils % 1.9 % (0-4.5) 09/30/19 06:19 Basophils % 0.1 % (0-2.0) 09/30/19 06:19 Nucleated RBC % 0 % (0-0) 09/30/19 06:19 PT with INR 11.60 SEC (9.7-13.0) 09/29/19 17:15 INR 0.98 (0.83-1.09) 09/29/19 17:15 PTT (Actin FS) 17.6 SECONDS (25.2-36.5) L 09/29/19 17:15 Sodium 138 mmol/L (136-145) 09/30/19 06:19 Potassium 3.3 mmol/L (3.5-5.1) L 09/30/19 06:19 Chloride 105 mmol/L (98-107) 09/30/19 06:19 Carbon Dioxide 24 mmol/L (21-32) 09/30/19 06:19 Anion Gap 9 MMOL/L (8-16) 09/30/19 06:19 BUN 11.4 mg/dL (7-18) 09/30/19 06:19 Creatinine 0.6 mg/dL (0.55-1.3) 09/30/19 06:19 Est GFR (CKD-EPI)AfAm 124.89 09/30/19 06:19 Est GFR (CKD-EPI)NonAf 107.76 09/30/19 06:19 POC Glucometer 134 UNITS (80-120) 09/30/19 11:06 Random Glucose 168 mg/dL (74-106) H 09/30/19 06:19 Hemoglobin A1c % 7.2 % (4.2-6.3) H 09/30/19 06:19 Calcium 7.7 mg/dL (8.5-10.1) L 09/30/19 06:19 Phosphorus 2.3 mg/dL (2.5-4.9) L 09/30/19 06:19 Magnesium 1.7 mg/dL (1.8-2.4) L 09/30/19 06:19 Total Bilirubin 1.4 mg/dL (0.2-1) H 09/30/19 06:19 AST 305 U/L (15-37) H 09/30/19 06:19 ALT 142 U/L (13-61) H 09/30/19 06:19 Alkaline Phosphatase 179 U/L (45-117) H 09/30/19 06:19 Creatine Kinase 116 U/L (26-308) 09/29/19 17:15 Troponin I < 0.02 ng/ml (0.00-0.05) 09/30/19 06:19 Total Protein 5.1 g/dl (6.4-8.2) L 09/30/19 06:19 Albumin 2.8 g/dl (3.4-5.0) L 09/30/19 06:19 Triglycerides 107 mg/dL (0-150) 09/30/19 06:19 Cholesterol 92 mg/dL (50-200) 09/30/19 06:19 Total LDL Cholesterol 21 mg/dL (5-100) 09/30/19 06:19 HDL Cholesterol 56 mg/dL (40-60) 09/30/19 06:19 Lipase 54 U/L (73-393) L 09/29/19 17:15 TSH 1.27 uIU/ml (0.358-3.74) D 09/30/19 06:19 Urine Color Yellow 09/29/19 21:20 Urine Appearance Clear 09/29/19 21:20 Urine pH 6.0 (5.0-8.0) 09/29/19 21:20 Ur Specific [place] 1.012 (1.010-1.035) 09/29/19 21:20 Urine Protein Negative (NEGATIVE) 09/29/19 21:20 Urine Glucose (UA) Trace (NEGATIVE) 09/29/19 21:20 Urine Ketones Negative (NEGATIVE) 09/29/19 21:20 Urine Blood Negative (NEGATIVE) 09/29/19 21:20 Urine Nitrite Negative (NEGATIVE) 09/29/19 21:20 Urine Bilirubin Negative (NEGATIVE) 06/24/20 21:20 Urine Urobilinogen 1.0 mg/dL (0.2-1.0) 09/29/19 21:20 Ur Leukocyte Esterase Negative (NEGATIVE) 09/29/19 21:20 Alcohol, Quantitative < 3 mg/dL (0.0-5.0) 09/29/19 17:15 ecg: unermarkable tele: sr cxr: clear a/p: 63 m hx htn, hld, dm, cad s/p remote pci sent for etoh detox. cad, remote pci: -no signs acs, chf -cont stan, bb, ccb, asa. hold statin due to elevated lfts. -echo pending htn: -cont current meds hld: -hold statin due to elevated lfts. etoh detox: -on ativan, plans per primary
[2019-09-30] MEDS ORDERED: NAPH,MB-DB/K PH,MBDB POWDER PACKET PO ONE (14:39)
[2019-09-30] MEDS ORDERED: MAGNESIUM SULF 50% (8.12 MEQ/2 ML-1 GM VIAL) IVPB ONE (14:40)
--- NOTE | 2019-09-30 14:43 | ECHO ---
Name: DIVYA JACOBOBRITTANIE Exam:Adult Echocardiogram Study Date: 09/30/2019 08:22 AM Age: 63 yrs Reason For Study: r/o acs MMode/2D Measurements & Calculations IVSd: 1.3 cm Ao root diam: 3.7 cm LVIDd: 3.5 cm LA dimension: 3.3 cm LVIDs: 2.6 cm LVPWd: 1.3 cm LVPWs: 1.6 cm EDV(Teich): 50.3 ml ESV(Teich): 24.6 ml LVOT diam: 2.0 cm TAPSE: 3.3 cm RV S Allen: 15.6 cm/sec Doppler Measurements & Calculations MV E max allen: 58.2 cm/sec Ao V2 max: 123.2 cm/sec MV A max allen: 85.4 cm/sec Ao max P.2 mmHg MV E/A: 0.68 ENRIQUE(V,D): 2.5 cm2 MV dec time: 0.11 sec LV V1 max P.8 mmHg PA V2 max: 93.7 cm/sec LV V1 max: 97.7 cm/sec PA max P.5 mmHg Med Peak E' Allen: 6.5 cm/sec Med E/e': 9.0 Lat Peak E' Allen: 10.4 cm/sec Lat E/e': 5.6 Procedure A complete two-dimensional transthoracic echocardiogram was performed (2D, M-mode, Doppler and color flow Doppler). Left Ventricle The left ventricular size, thickness and function are normal. The left ventricular ejection fraction is normal. Ejection Fraction = 60-65%. The left ventricular wall motion is normal. Right Ventricle The right ventricle is normal in size and function. Atria Normal left and right atrial size and function. Mitral Valve There is no mitral regurgitation noted. Tricuspid Valve There is trace tricuspid regurgitation. There was insufficient TR detected to calculate RV systolic p ressure. Aortic Valve No hemodynamically significant valvular aortic stenosis. No aortic regurgitation is present. Pulmonic Valve There is no pulmonic valvular regurgitation. Great Vessels The aortic root is normal size. Pericardium/Pleura There is no pericardial effusion. Interpretation Summary The left ventricular size, thickness and function are normal The right ventricle is normal in size and function. There is trace tricuspid regurgitation. MD Merritt Singh 09/30/2019 02:43 PM
[2019-09-30] MEDS ORDERED: MAGNESIUM 1GM/D5W - 2 GM/200 ML IVPB IVPB ONE (14:55)
[2019-09-30] MEDS: SERTRALINE HCL 50 MG TABLET (FP) PO SCH (15:02)
--- NOTE | 2019-09-30 16:03 | PN ---
Teaching Attending Note Name of Resident: Ginger Vázquez ATTENDING PHYSICIAN STATEMENT I saw and evaluated the patient. I reviewed the resident's note and discussed the case with the resident. I agree with the resident's findings and plan as documented. SUBJECTIVE: no fever or chills. Reports cp which resolved today. intermittent, x 3 weeks , not very specific about duration . happen at rest , no specific relation to exertion . No N/V. he reports depression but no SI. no family support. No fever or chills. reported diarrhea when asked about the stool on his legs . No abd pain . no dysuria . No SOB or cough OBJECTIVE: NAD, flat affect, disheveled, dry MM. flushed face Cv : RRR, no MRG Lungs: CTAB Abd: soft, NT, Nd , NL BS Ext : No edema . on upper or lower extremities. warm feet . L antecubital area with erythema where a tape was at IV site ASSESSMENT AND PLAN: 63 y/o man with h/o HTN, HLD, DM, CAD (s/p stents), Active Alcohol abuse, previous Heroin abuse ( 10 yr) , previous cocaine abuse ( 2 yrs) , Tobacco use and Anxiety and depression who presented to [facility] then transferred here for CP . 1- CP: atypical . EKG sinus rhythm. ST depression in V4-6. no previous. atypical in nature. - repeat EKG - cont aspirin . - cont BB, statin - added low dose lisinopril - treat withdrawal 2- Leukocytosis; likely reactive . no signs of infection . no need for Abx 3- ETOH withdrawal . - did not receive IV thiamine - gave 200 iv x 1 - replete electrolytes - add thiamine and folic po daily - ativan detox 4- Alcoholic hepatitis . DF -1. no need for steroids . follow LFTS 5- H/o DM : not on any meds. A1c 7.2. - ssi for now 6- depression : resume zoloft . refer to psych as out pt 7- renal cyst and lung nodule: f/u as out pt . pt notified of importance to follow . 8- HTN: cont BB, norvasc, adn add ACEI DVT PX lovenox , GI px ad dprotonix .
--- NOTE | 2019-09-30 17:34 | EKG ---
Test Reason : Blood Pressure : / mmHG Vent. Rate : 074 BPM Atrial Rate : 074 BPM P-R Int : 168 ms QRS Dur : 078 ms QT Int : 416 ms P-R-T Axes : 072 004 015 degrees QTc Int : 461 ms POOR DATA QUALITY, INTERPRETATION MAY BE ADVERSELY AFFECTED NORMAL SINUS RHYTHM SEPTAL INFARCT , AGE UNDETERMINED ABNORMAL ECG WHEN COMPARED WITH ECG OF 29-SEP-2019 16:38, SEPTAL INFARCT IS NOW PRESENT Confirmed by CANDE BROWNLEE MD ([id number]) on 09/30/2019 5:34:05 PM Referred By: Confirmed By:CANDE BROWNLEE MD
--- NOTE | 2019-09-30 17:52 | PN ---
Physical Exam: SUBJECTIVE: Patient seen and examined. He reports feeling depressed. Denies suicidal/homicidal ideations. He denies pain, nausea, or vomiting. He has been having diarrhea the last 2 weeks. OBJECTIVE: Vital Signs Period Temp Pulse Resp BP Sys/Taylor Pulse Ox Last 24 Hr 98.0 F-98.2 F 73-96 16-25 102-145/50-97 95-198 GENERAL: The patient is awake, alert, and fully oriented, in no acute distress. HEAD: Normal with no signs of trauma. EYES: PERRL, extraocular movements intact, conjunctiva clear. ENT: Ears normal, nares patent, moist mucous membranes. NECK: Trachea midline, full range of motion. LUNGS: Breath sounds equal, clear to auscultation bilaterally, no wheezes. HEART: see attending exam ABDOMEN: Soft, nontender, nondistended, normoactive bowel sounds. EXTREMITIES: 2+ pulses, warm, well-perfused, no edema. NEUROLOGICAL: Cranial nerves II through XII grossly intact. Normal speech. PSYCH: Dysthymic mood, quiet. SKIN: Warm, dry, normal turgor. Laboratory Results - last 24 hr 09/29/19 09/29/19 09/29/19 17:15 21:20 22:03 WBC RBC Hgb Hct MCV MCH MCHC RDW Plt Count MPV Absolute Neuts (auto) Neutrophils % Lymphocytes % Monocytes % Eosinophils % Basophils % Nucleated RBC % Sodium 141 Potassium 3.0 L Chloride 107 Carbon Dioxide 23 Anion Gap 11 BUN 19.7 H Creatinine 0.7 Est GFR (CKD-EPI)AfAm 117.22 Est GFR (CKD-EPI)NonAf 101.14 POC Glucometer 236 Random Glucose 62 L Hemoglobin A1c % Calcium 8.7 Phosphorus 2.3 L Magnesium 1.9 Total Bilirubin 1.2 H AST 362 H ALT 147 H Alkaline Phosphatase 182 H Creatine Kinase 116 Troponin I < 0.02 Total Protein 5.8 L Albumin 3.2 L Triglycerides Cholesterol Total LDL Cholesterol HDL Cholesterol Lipase 54 L TSH 1.69 Urine Color Yellow Urine Appearance Clear Urine pH 6.0 Ur Specific [place] 1.012 Urine Protein Negative Urine Glucose (UA) Trace Urine Ketones Negative Urine Blood Negative Urine Nitrite Negative Urine Bilirubin Negative Urine Urobilinogen 1.0 Ur Leukocyte Esterase Negative Alcohol, Quantitative < 3 09/30/19 09/30/19 09/30/19 01:42 01:42 06:19 WBC 9.3 7.7 RBC 4.15 4.10 Hgb 13.0 12.7 Hct 38.3 37.8 MCV 92.2 92.3 MCH 31.3 31.1 MCHC 33.9 33.6 RDW 14.2 13.9 Plt Count 196 186 MPV 9.1 9.4 Absolute Neuts (auto) 6.0 4.6 Neutrophils % 64.6 60.0 Lymphocytes % 25.7 D 29.3 Monocytes % 8.5 8.7 Eosinophils % 1.1 D 1.9 Basophils % 0.1 0.1 Nucleated RBC % 0 0 Sodium Potassium Chloride Carbon Dioxide Anion Gap BUN Creatinine Est GFR (CKD-EPI)AfAm Est GFR (CKD-EPI)NonAf POC Glucometer Random Glucose Hemoglobin A1c % Calcium Phosphorus Magnesium Total Bilirubin AST ALT Alkaline Phosphatase Creatine Kinase Troponin I < 0.02 Total Protein Albumin Triglycerides Cholesterol Total LDL Cholesterol HDL Cholesterol Lipase TSH Urine Color Urine Appearance Urine pH Ur Specific [place] Urine Protein Urine Glucose (UA) Urine Ketones Urine Blood Urine Nitrite Urine Bilirubin Urine Urobilinogen Ur Leukocyte Esterase Alcohol, Quantitative 09/30/19 09/30/19 09/30/19 06:19 06:19 07:23 WBC RBC Hgb Hct MCV MCH MCHC RDW Plt Count MPV Absolute Neuts (auto) Neutrophils % Lymphocytes % Monocytes % Eosinophils % Basophils % Nucleated RBC % Sodium 138 Potassium 3.3 L Chloride 105 Carbon Dioxide 24 Anion Gap 9 BUN 11.4 Creatinine 0.6 Est GFR (CKD-EPI)AfAm 124.89 Est GFR (CKD-EPI)NonAf 107.76 POC Glucometer 157 Random Glucose 168 H Hemoglobin A1c % 7.2 H Calcium 7.7 L Phosphorus 2.3 L Magnesium 1.7 L Total Bilirubin 1.4 H AST 305 H ALT 142 H Alkaline Phosphatase 179 H Creatine Kinase Troponin I < 0.02 Total Protein 5.1 L Albumin 2.8 L Triglycerides 107 Cholesterol 92 Total LDL Cholesterol 21 HDL Cholesterol 56 Lipase TSH 1.27 D Urine Color Urine Appearance Urine pH Ur Specific [place] Urine Protein Urine Glucose (UA) Urine Ketones Urine Blood Urine Nitrite Urine Bilirubin Urine Urobilinogen Ur Leukocyte Esterase Alcohol, Quantitative 09/30/19 09/30/19 11:06 16:13 WBC RBC Hgb Hct MCV MCH MCHC RDW Plt Count MPV Absolute Neuts (auto) Neutrophils % Lymphocytes % Monocytes % Eosinophils % Basophils % Nucleated RBC % Sodium Potassium Chloride Carbon Dioxide Anion Gap BUN Creatinine Est GFR (CKD-EPI)AfAm Est GFR (CKD-EPI)NonAf POC Glucometer 134 158 Random Glucose Hemoglobin A1c % Calcium Phosphorus Magnesium Total Bilirubin AST ALT Alkaline Phosphatase Creatine Kinase Troponin I Total Protein Albumin Triglycerides Cholesterol Total LDL Cholesterol HDL Cholesterol Lipase TSH Urine Color Urine Appearance Urine pH Ur Specific [place] Urine Protein Urine Glucose (UA) Urine Ketones Urine Blood Urine Nitrite Urine Bilirubin Urine Urobilinogen Ur Leukocyte Esterase Alcohol, Quantitative Active Medications Generic Name Dose Route Start Last Admin Trade Name Freq PRN Reason Stop Dose Admin Albuterol Sulfate 2 puff 09/29/19 21:11 Ventolin Hfa Inhaler - IH Q4H PRN SHORT OF BREATH/WHEEZING Amlodipine Besylate 10 mg 09/30/19 10:00 09/30/19 10:06 Norvasc - PO 10 mg DAILY RICHIE Administration Aspirin 81 mg 09/30/19 10:00 09/30/19 10:05 Ecotrin - PO 81 mg DAILY RICHIE Administration Enoxaparin Sodium 40 mg 09/30/19 10:00 09/30/19 10:05 Lovenox - SQ 40 mg DAILY RICHIE Administration Folic Acid 1 mg 09/30/19 10:00 09/30/19 10:05 Folic Acid - PO 1 mg DAILY RICHIE Administration Sodium Chloride 1,000 mls @ 100 mls/hr 09/30/19 10:18 09/30/19 10:27 Normal Saline - IV 100 mls/hr ASDIR RICHIE Administration Insulin Aspart 1 vial 09/29/19 22:00 09/30/19 16:20 Novolog Vial Sliding Scale - SQ 2 units ACHS RICHIE Administration Protocol Levetiracetam 500 mg 09/30/19 10:00 09/30/19 10:05 Keppra - PO 500 mg BID RICHIE Administration Lisinopril 5 mg 09/30/19 10:15 09/30/19 10:33 Prinivil PO 5 mg DAILY RICHIE Administration Lorazepam 2 mg 09/29/19 23:00 09/30/19 16:20 Ativan PO 09/30/19 23:01 2 mg 0500,1100,1700,2300 RICHIE Administration Lorazepam 0.5 mg 10/02/19 05:00 Ativan - PO 10/02/19 23:01 Q6H RICHIE Lorazepam 0.5 mg 10/02/19 00:00 Ativan - PO 10/02/19 23:59 Q4H PRN Symptoms of Withdrawal Lorazepam 1 mg 10/01/19 05:00 Ativan - PO 10/01/19 23:01 0500,1100,1700,2300 RICHIE Lorazepam 1 mg 09/29/19 20:49 Ativan - PO 10/01/19 23:59 Q4H PRN Symptoms of Withdrawal Lorazepam 0.5 mg 10/03/19 05:00 Ativan - PO 10/03/19 05:01 ONCE ONE Metoprolol Tartrate 25 mg 09/30/19 10:00 09/30/19 10:05 Lopressor - PO 25 mg BID RICHIE Administration Multivitamins/Minerals/Vitamin C 1 tab 09/30/19 10:00 09/30/19 10:06 Tab-A-Vit - PO 1 tab DAILY RICHIE Administration Pantoprazole Sodium 40 mg 10/01/19 10:00 Protonix - PO DAILY RICHIE Sertraline HCl 75 mg 09/30/19 14:45 09/30/19 15:02 Zoloft - PO 75 mg DAILY RICHIE Administration Thiamine HCl 100 mg 09/30/19 10:00 09/30/19 10:07 Vitamin B1 - PO 100 mg DAILY RICHIE Administration ASSESSMENT/PLAN: Pt is a 63 y/o male with ETOH use disorder, major depressive disorder, IDDM, HTN, HLD, tobacco use disorder, and CAD s/p 3 stents ~2014 who presents from [facility] with substernal chest pain and SOB. #chest pain -r/o ACS- unlikely given trop negative x2, and ST depressions in lateral leads appear in 2 EKGs without progression -denies any cocaine or heroin use in over 2 years -consider nuclear stress test when stable -transfer [facility] to med/surg #ETOH use disorder #leukocytosis likely 2/2 heavy alcohol use #transaminitis 2/2 ETOH use disorder -ativan protocol day 1 -MV -thiamine -folate -IV fluids -if stable, may transfer to [facility] tomorrow to complete detox -PT eval #hypokalemia 2/2 malnutrition/ETOH use -PO replete -monitor #hypophosphatemia 2/2 malnutrition/ETOH use -PO replete -monitor #hypomagnesemia -PO replete -monitor #major depressive disorder -continue Zoloft -pt advised to make appt with psychiatrist when outpt, will give referral at d/c #IDDM -SSI -BGMs #HTN -home metoprolol 25mg BID #HLD #CAD s/p stents -start lisinopril 5mg daily for vascular benefit #tobacco use disorder -tobacco cessation education DVT Ppx Lovenox FEN NS 100mL/hr monitor K, Mg, Phos diabetic/sodium/low fat diet dispo med/surg FULL CODE Visit type - Emergency Visit Emergency Visit: Yes ED Registration Date: 09/29/19 Care time: The patient presented to the Emergency Department on the above date and was hospitalized for further evaluation of their emergent condition. - New Patient This patient is new to me today: Yes Date on this admission: 09/30/19 - Critical Care Critical Care patient: No ATTENDING PHYSICIAN STATEMENT I saw and evaluated the patient. I reviewed the resident's note and discussed the case with the resident. I agree with the resident's findings and plan as documented. SUBJECTIVE: OBJECTIVE: ASSESSMENT AND PLAN:
[2019-09-30] MEDS: LORazepam 0.5 MG TABLET PO PRN (20:11)
[2019-09-30] MEDS ORDERED: ATORVASTATIN CA 80 MG TABLET (FP) PO SCH (22:00)
[2019-09-30] MEDS ORDERED: LORazepam 1 MG TABLET PO SCH (22:03)
[2019-10-01] MEDS ORDERED: LORazepam 1 MG TABLET PO SCH (05:00)
--- NOTE | 2019-10-01 05:45 | PN ---
Progress Note, Physician Chief Complaint: denies CP, SOB, palps TELE: NSR History of Present Illness: CAD with remote PCI DETOX - Current Medication List Current Medications: Active Medications Albuterol Sulfate (Ventolin Hfa Inhaler -) 2 puff IH Q4H PRN PRN Reason: SHORT OF BREATH/WHEEZING Amlodipine Besylate (Norvasc -) 10 mg PO DAILY [facility] Last Admin: 09/30/19 10:06 Dose: 10 mg Documented by: Aspirin (Ecotrin -) 81 mg PO DAILY [facility] Last Admin: 09/30/19 10:05 Dose: 81 mg Documented by: Enoxaparin Sodium (Lovenox -) 40 mg SQ DAILY [facility] Last Admin: 09/30/19 10:05 Dose: 40 mg Documented by: Folic Acid (Folic Acid -) 1 mg PO DAILY [facility] Last Admin: 09/30/19 10:05 Dose: 1 mg Documented by: Sodium Chloride (Normal Saline -) 1,000 mls @ 100 mls/hr IV ASDIR [facility] Last Admin: 09/30/19 10:27 Dose: 100 mls/hr Documented by: Insulin Aspart (Novolog Vial Sliding Scale -) 1 vial SQ ACHS [facility]; Protocol Last Admin: 09/30/19 22:35 Dose: 6 units Documented by: Levetiracetam (Keppra -) 500 mg PO BID [facility] Last Admin: 09/30/19 22:34 Dose: 500 mg Documented by: Lisinopril (Prinivil) 5 mg PO DAILY [facility] Last Admin: 09/30/19 10:33 Dose: 5 mg Documented by: Lorazepam (Ativan -) 0.5 mg PO Q6H [facility] Stop: 10/02/19 23:01 Lorazepam (Ativan -) 0.5 mg PO Q4H PRN PRN Reason: Symptoms of Withdrawal Stop: 10/02/19 23:59 Last Admin: 09/30/19 20:11 Dose: 0.5 mg Documented by: Lorazepam (Ativan -) 1 mg PO 0500,1100,1700,2300 [facility] Stop: 10/01/19 23:01 Lorazepam (Ativan -) 1 mg PO Q4H PRN PRN Reason: Symptoms of Withdrawal Stop: 10/01/19 23:59 Lorazepam (Ativan -) 0.5 mg PO ONCE ONE Stop: 10/03/19 05:01 Metoprolol Tartrate (Lopressor -) 25 mg PO BID [facility] Last Admin: 09/30/19 22:35 Dose: 25 mg Documented by: Multivitamins/Minerals/Vitamin C (Tab-A-Vit -) 1 tab PO DAILY [facility] Last Admin: 09/30/19 10:06 Dose: 1 tab Documented by: Pantoprazole Sodium (Protonix -) 40 mg PO DAILY [facility] Sertraline HCl (Zoloft -) 75 mg PO DAILY [facility] Last Admin: 09/30/19 15:02 Dose: 75 mg Documented by: Thiamine HCl (Vitamin B1 -) 100 mg PO DAILY [facility] Last Admin: 09/30/19 10:07 Dose: 100 mg Documented by: - Objective Vital Signs: Vital Signs Temperature 98.1 F 10/01/19 02:00 Pulse Rate 74 10/01/19 02:00 Respiratory Rate 19 10/01/19 02:00 Blood Pressure 114/78 10/01/19 02:00 O2 Sat by Pulse Oximetry (%) 96 09/30/19 20:44 Constitutional: Yes: No Distress Cardiovascular: Yes: Regular Rate and Rhythm Respiratory: Yes: CTA Bilaterally Gastrointestinal: Yes: Soft (nt) Edema: No Peripheral Pulses WNL: Yes Neurological: Yes: Alert, Oriented Labs: CBC, BMP 09/30/19 06:19 09/30/19 06:19 INR, PTT INR 0.98 (0.83-1.09) 09/29/19 17:15 Assessment/Plan a/p: 63 m hx htn, hld, dm, cad s/p remote pci sent for etoh detox. cad, remote pci: -no signs acs, chf -cont stan, bb, ccb, asa. hold statin due to elevated lfts. -echo normal 09/29 htn: normal/stable -cont current meds hld: -hold statin due to elevated lfts. etoh detox: -on ativan, plans per primary Mild hyperkalemia: -Replete, daily lytes Ok d/c tele
[2019-10-01] MEDS: LORazepam 1 MG TABLET PO SCH ×4 (06:10→22:40)
[2019-10-01] MEDS: INSULIN SLIDING SCALE (NOVOLOG) 1 VIAL SQ SCH ×4 (06:15→21:29)
[2019-10-01 08:12] LABS: BASO % 0.2 % (0-2.0); EOS % 3.1 % (0-4.5); HEMATOCRIT 36.5 % (35.4-49); HEMOGLOBIN 12.2 GM/dL (11.7-16.9); LYMPH % 26.8 % (8-40); MCH 30.6 pg (25.7-33.7); MCHC 33.4 g/dl (32.0-35.9); MEAN CELL VOLUME 91.8 fl (80-96); MEAN PLT VOLUME 9.7 fl (7.5-11.1); MONO % 7.4 % (3.8-10.2); NEUT % 62.5 % (42.8-82.8); PLATELET COUNT 169 K/MM3 (134-434); RBC 3.98 M/mm3 (4.00-5.60); RDW 14.5 % (11.9-15.9); WHITE BLOOD COUNT 7.4 K/mm3 (4.0-10.0)
[2019-10-01 08:37] LABS: ALBUMIN 2.7 g/dl (3.4-5.0); BILIRUBIN,TOTAL 0.6 mg/dL (0.2-1); BLOOD UREA NITROGEN 14.3 mg/dL (7-18); CREATININE 0.6 mg/dL (0.55-1.3); MAGNESIUM 1.8 mg/dL (1.8-2.4); PHOSPHOROUS 3.1 mg/dL (2.5-4.9); POTASSIUM 3.3 mmol/L (3.5-5.1)
[2019-10-01] MEDS: ENOXAPARIN NA (PORCINE) 40 MG/0.4 ML DISP.SYRIN SQ SCH (09:40)
[2019-10-01] MEDS: THIAMINE HCL 100 MG TABLET (FP) PO SCH (09:41)
[2019-10-01] MEDS: MULTIVITAMINS (DAILY MVI) TABLET (FP) PO SCH (09:41)
[2019-10-01] MEDS: FOLIC ACID 1 MG TABLET (FP) PO SCH (09:41)
[2019-10-01] MEDS: levETIRAcetam 500 MG TABLET (FP) PO SCH ×2 (09:41→21:29)
[2019-10-01] MEDS: ASPIRIN COATED 81 MG TABLET.EC PO SCH (09:42)
[2019-10-01] MEDS: amLODIPine BESYLATE 10 MG TABLET (FP) PO SCH (09:42)
[2019-10-01] MEDS: METOPROLOL TARTRATE 25 MG TABLET (FP) PO SCH ×2 (09:42→21:29)
[2019-10-01] MEDS: PANTOPRAZOLE 40 MG TABLET PO SCH (09:42)
[2019-10-01] MEDS: SERTRALINE HCL 50 MG TABLET (FP) PO SCH (09:42)
[2019-10-01] MEDS: LISINOPRIL 5 MG TABLET (FP) PO SCH (09:43)
[2019-10-01] MEDS ORDERED: POTASSIUM CHLORIDE TABS 20 MEQ TABLET.ER (FP) PO ONE (10:10)
[2019-10-01] MEDS ORDERED: ALBUTEROL SO4 2.5/IPRATROPIUM 0.5 INH SOL 3 ML VIAL.NEB. NEB ONE (10:19)
[2019-10-01] MEDS: SODIUM CHLORIDE 1,000 ML IV SCH (12:07)
[2019-10-01] MEDS: KCL 10 MEQ IVPB 10 MEQ/100 ML INFUS.BAG IVPB SCH ×3 (12:07→15:50)
--- NOTE | 2019-10-01 16:11 | PN ---
Teaching Attending Note Name of Resident: Ginger Vázquez ATTENDING PHYSICIAN STATEMENT I saw and evaluated the patient. I reviewed the resident's note and discussed the case with the resident. I agree with the resident's findings and plan as documented. SUBJECTIVE: Patient has no complaints. OBJECTIVE: Vital Signs Period Temp Pulse Resp BP Sys/Taylor Pulse Ox Last 24 Hr 97.6 F-98.4 F 69-78 18-19 102-125/62-85 96-97 HEART: S1S2, RRR LUNGS: Clear ABDOMEN: Soft, non-tender, non-distended, normal BS EXTREMITIES: No edema Laboratory Results - last 24 hr 09/30/19 09/30/19 10/01/19 16:13 21:21 07:15 WBC 7.4 RBC 3.98 L Hgb 12.2 Hct 36.5 MCV 91.8 MCH 30.6 MCHC 33.4 RDW 14.5 Plt Count 169 MPV 9.7 Absolute Neuts (auto) 4.7 Neutrophils % 62.5 Lymphocytes % 26.8 Monocytes % 7.4 Eosinophils % 3.1 Basophils % 0.2 Nucleated RBC % 0 Sodium Potassium Chloride Carbon Dioxide Anion Gap BUN Creatinine Est GFR (CKD-EPI)AfAm Est GFR (CKD-EPI)NonAf POC Glucometer 158 255 Random Glucose Calcium Phosphorus Magnesium Total Bilirubin AST ALT Alkaline Phosphatase Total Protein Albumin 10/01/19 10/01/19 07:15 11:40 WBC RBC Hgb Hct MCV MCH MCHC RDW Plt Count MPV Absolute Neuts (auto) Neutrophils % Lymphocytes % Monocytes % Eosinophils % Basophils % Nucleated RBC % Sodium 140 Potassium 3.3 L Chloride 106 Carbon Dioxide 26 Anion Gap 7 L BUN 14.3 Creatinine 0.6 Est GFR (CKD-EPI)AfAm 124.89 Est GFR (CKD-EPI)NonAf 107.76 POC Glucometer 182 Random Glucose 153 H Calcium 8.0 L Phosphorus 3.1 Magnesium 1.8 Total Bilirubin 0.6 AST 199 H ALT 138 H Alkaline Phosphatase 171 H Total Protein 5.0 L Albumin 2.7 L Current Medications Generic Name Dose Route Start Last Admin Trade Name Freq PRN Reason Stop Dose Admin Albuterol Sulfate 2 puff 09/29/19 21:11 Ventolin Hfa Inhaler - IH Q4H PRN SHORT OF BREATH/WHEEZING Amlodipine Besylate 10 mg 09/30/19 10:00 10/01/19 09:42 Norvasc - PO 10 mg DAILY RICHIE Administration Aspirin 81 mg 09/30/19 10:00 10/01/19 09:42 Ecotrin - PO 81 mg DAILY RICHIE Administration Enoxaparin Sodium 40 mg 09/30/19 10:00 10/01/19 09:40 Lovenox - SQ 40 mg DAILY RICHIE Administration Folic Acid 1 mg 09/30/19 10:00 10/01/19 09:41 Folic Acid - PO 1 mg DAILY RICHIE Administration Sodium Chloride 1,000 mls @ 100 mls/hr 09/30/19 10:18 10/01/19 12:07 Normal Saline - IV 100 mls/hr ASDIR RICHIE Administration Insulin Aspart 1 vial 09/29/19 22:00 10/01/19 11:43 Novolog Vial Sliding Scale - SQ 2 units ACHS RICHIE Administration Protocol Levetiracetam 500 mg 09/30/19 10:00 10/01/19 09:41 Keppra - PO 500 mg BID RICHIE Administration Lisinopril 5 mg 09/30/19 10:15 10/01/19 09:43 Prinivil PO 5 mg DAILY RICHIE Administration Lorazepam 0.5 mg 10/02/19 05:00 Ativan - PO 10/02/19 23:01 Q6H RICHIE Lorazepam 0.5 mg 10/02/19 00:00 09/30/19 20:11 Ativan - PO 10/02/19 23:59 0.5 mg Q4H PRN Administration Symptoms of Withdrawal Lorazepam 1 mg 10/01/19 05:00 10/01/19 11:33 Ativan - PO 10/01/19 23:01 1 mg 0500,1100,1700,2300 RICHIE Administration Lorazepam 1 mg 09/29/19 20:49 Ativan - PO 10/01/19 23:59 Q4H PRN Symptoms of Withdrawal Lorazepam 0.5 mg 10/03/19 05:00 Ativan - PO 10/03/19 05:01 ONCE ONE Metoprolol Tartrate 25 mg 09/30/19 10:00 10/01/19 09:42 Lopressor - PO 25 mg BID RICHIE Administration Multivitamins/Minerals/Vitamin C 1 tab 09/30/19 10:00 10/01/19 09:41 Tab-A-Vit - PO 1 tab DAILY RICHIE Administration Pantoprazole Sodium 40 mg 10/01/19 10:00 10/01/19 09:42 Protonix - PO 40 mg DAILY RICHIE Administration Sertraline HCl 75 mg 09/30/19 14:45 10/01/19 09:42 Zoloft - PO 75 mg DAILY RICHIE Administration Thiamine HCl 100 mg 09/30/19 10:00 10/01/19 09:41 Vitamin B1 - PO 100 mg DAILY RICHIE Administration ASSESSMENT AND PLAN: This is a 63 year old man with a history of HTN, hyperlipidemia, CAD, cardiac stents, type 2 DM, alcohol abuse, heroin abuse, cocaine abuse, anxiety and depression who presented to the ED from [facility] for evaluation of chest pain. 1. Chest pain, atypical - Resolved 2. Hypokalemia - Replete potassium 3. Leukocytosis - Resolved 4. Continuous alcohol abuse with uncomplicated withdrawal - Continue thiamine, folic acid, multivitamin - Continue Ativan detox 5. Acute alcoholic hepatitis - LFTs improving - Continue to hold Lipitor 6. Ok to return to [facility] to complete detox
--- NOTE | 2019-10-01 16:53 | DS ---
Physical Exam: SUBJECTIVE: Patient seen and examined. He denies any complaints today. OBJECTIVE: Vital Signs Period Temp Pulse Resp BP Sys/Taylor Pulse Ox Last 24 Hr 97.6 F-98.4 F 69-78 18-19 102-125/62-85 96-97 PHYSICAL EXAM GENERAL: The patient is awake, alert, and fully oriented, in no acute distress. HEAD: Normal with no signs of trauma. EYES: PERRL, extraocular movements intact, conjunctiva clear. ENT: Ears normal, nares patent, moist mucous membranes. NECK: Trachea midline, full range of motion. LUNGS: Breath sounds equal, clear to auscultation bilaterally, no wheezes. HEART: see attending exam ABDOMEN: Soft, nontender, nondistended, normoactive bowel sounds. EXTREMITIES: 2+ pulses, warm, well-perfused, no edema. NEUROLOGICAL: Cranial nerves II through XII grossly intact. Normal speech. PSYCH: Dysthymic mood, quiet. SKIN: Warm, dry, normal turgor. LABS Laboratory Results - last 24 hr 09/30/19 10/01/19 10/01/19 21:21 07:15 07:15 WBC 7.4 RBC 3.98 L Hgb 12.2 Hct 36.5 MCV 91.8 MCH 30.6 MCHC 33.4 RDW 14.5 Plt Count 169 MPV 9.7 Absolute Neuts (auto) 4.7 Neutrophils % 62.5 Lymphocytes % 26.8 Monocytes % 7.4 Eosinophils % 3.1 Basophils % 0.2 Nucleated RBC % 0 Sodium 140 Potassium 3.3 L Chloride 106 Carbon Dioxide 26 Anion Gap 7 L BUN 14.3 Creatinine 0.6 Est GFR (CKD-EPI)AfAm 124.89 Est GFR (CKD-EPI)NonAf 107.76 POC Glucometer 255 Random Glucose 153 H Calcium 8.0 L Phosphorus 3.1 Magnesium 1.8 Total Bilirubin 0.6 AST 199 H ALT 138 H Alkaline Phosphatase 171 H Total Protein 5.0 L Albumin 2.7 L 10/01/19 11:40 WBC RBC Hgb Hct MCV MCH MCHC RDW Plt Count MPV Absolute Neuts (auto) Neutrophils % Lymphocytes % Monocytes % Eosinophils % Basophils % Nucleated RBC % Sodium Potassium Chloride Carbon Dioxide Anion Gap BUN Creatinine Est GFR (CKD-EPI)AfAm Est GFR (CKD-EPI)NonAf POC Glucometer 182 Random Glucose Calcium Phosphorus Magnesium Total Bilirubin AST ALT Alkaline Phosphatase Total Protein Albumin HOSPITAL COURSE: Pt is a 63 y/o male with ETOH use disorder, major depressive disorder, IDDM, HTN, HLD, tobacco use disorder, and CAD s/p 3 stents ~[address] [facility] with substernal chest pain and SOB. ACS was ruled out with negative trops and no progressive changes in EKGs. He did have a transaminitis that improved somewhat over the course. He was given vitamins, electrolyte repletion, and IV fluids. He was started on Ativan protocol. He was continued on Zoloft for depression but was instructed that he likely needs his medication adjusted because his symptoms are being controlled with alcohol. He was started on lisinopril 5mg given CAD and has vascular benefits. He was transferred back to [facility] to complete detox and start rehab. Date of Admission:10/01/19 Date of Discharge: 10/01/19 Minutes to complete discharge: 35 Discharge Summary Problems reviewed: Yes Reason For Visit: ALCOHOLO WITHDRAWL SYNDROME CHEST PAIN Current Active Problems Alcohol withdrawal (Acute) Hypokalemia (Acute) Hyperlipidemia (Chronic) Hypertension (Chronic) IDDM (insulin dependent diabetes mellitus) (Chronic) Major depressive disorder (Chronic) Condition: Stable - Instructions Diet, Activity, Other Instructions: Your Visit: You were admitted to the hospital because you were having chest pain and alcohol withdrawal. You were monitored and no heart attack or arrhythmias were found. You were started on a detox program and are stable now to go to [facility] to complete your detox. Your liver enzymes were high because of alcohol use. You will need to stop taking your atorvastatin until you can follow up with primary care. Your electrolytes were low and will need to be checked later. Cysts were found on your kidneys. Your doctor will decide if you need further workup. A nodule on your lung was found that should be monitored by your doctor. Medications: Continue your home medications, EXCEPT you need to STOP taking atorvastatin (Lipitor). START lisinopril 5mg daily. Follow up: Dr. Willis, primary care, in 1 week after discharge. You will need liver enzymes, potassium, magnesium, and phosphorus checked. Dr. Bright, cardiology, in [address] Osborn, psychiatry, within 1 week for your depression. Other instructions: Call 911 or return to the emergency room if you have chest pain again, difficulty breathing, nausea, vomiting, or weakness. You should consider rehab after finishing detox like discussed. It is important to stop drinking alcohol because it has damaged your liver, and it will continue to worsen. Go to [facility] to complete your detox. BRING THIS PAPER WITH YOUR TO YOUR PRIMARY CARE DOCTOR. Referrals: Ryne Osborn MD [Staff Physician] - Sher Bright MD [Staff Physician] - 2 Weeks Michelle Willis MD [Non Staff, Medical] - 1 Week Disposition: TRANSFER ACUTE CARE/OTHER HOSP - Home Medications Comprehensive Discharge Medication List: Ambulatory Orders Amlodipine Besylate [Norvasc -] 10 mg PO DAILY 09/29/19 Aspirin [Ecotrin] 81 mg PO DAILY 09/29/19 Levetiracetam 500 mg PO BID 09/29/19 Metoprolol Tartrate [Lopressor -] 25 mg PO BID 09/29/19 Sertraline HCl [Zoloft -] 1.5 tab PO DAILY 09/29/19 Folic Acid - 1 mg PO DAILY tablet 10/01/19 Lisinopril [Prinivil] 5 mg PO DAILY #30 tablet 10/01/19 Multivitamins [Multivit (RH Formulary)] 1 tab PO DAILY tab 10/01/19 Thiamine HCl [Vitamin B1 -] 100 mg PO DAILY tablet 10/01/19 This patient is new to me today: No Emergency Visit: No Critical Care patient: No - Discharge Referral Referred to [facility] Med P.C.: No ATTENDING PHYSICIAN STATEMENT I saw and evaluated the patient. I reviewed the resident's note and discussed the case with the resident. I agree with the resident's findings and plan as documented. SUBJECTIVE: OBJECTIVE: ASSESSMENT AND PLAN:
[2019-10-02] MEDS ORDERED: LORazepam 0.5 MG TABLET PO PRN
[2019-10-02] MEDS ORDERED: LORazepam 0.5 MG TABLET PO SCH (05:00)
[2019-10-02] MEDS: LORazepam 0.5 MG TABLET PO SCH ×4 (06:05→22:52)
[2019-10-02] MEDS: INSULIN SLIDING SCALE (NOVOLOG) 1 VIAL SQ SCH ×4 (06:06→21:35)
--- NOTE | 2019-10-02 07:11 | PN ---
Progress Note, Physician Chief Complaint: etoh detox History of Present Illness: lethargic, slow to answer if at all. feels "jittery". denies sob, cp, palp, dizzy - Current Medication List Current Medications: Active Medications Albuterol Sulfate (Ventolin Hfa Inhaler -) 2 puff IH Q4H PRN PRN Reason: SHORT OF BREATH/WHEEZING Amlodipine Besylate (Norvasc -) 10 mg PO DAILY [facility] Last Admin: 10/01/19 09:42 Dose: 10 mg Documented by: Aspirin (Ecotrin -) 81 mg PO DAILY [facility] Last Admin: 10/01/19 09:42 Dose: 81 mg Documented by: Enoxaparin Sodium (Lovenox -) 40 mg SQ DAILY [facility] Last Admin: 10/01/19 09:40 Dose: 40 mg Documented by: Folic Acid (Folic Acid -) 1 mg PO DAILY [facility] Last Admin: 10/01/19 09:41 Dose: 1 mg Documented by: Insulin Aspart (Novolog Vial Sliding Scale -) 1 vial SQ [facility]; Protocol Last Admin: 10/02/19 06:06 Dose: 2 units Documented by: Levetiracetam (Keppra -) 500 mg PO BID [facility] Last Admin: 10/01/19 21:29 Dose: 500 mg Documented by: Lisinopril (Prinivil) 5 mg PO DAILY [facility] Last Admin: 10/01/19 09:43 Dose: 5 mg Documented by: Lorazepam (Ativan -) 0.5 mg PO Q6H [facility] Stop: 10/02/19 23:01 Last Admin: 10/02/19 06:05 Dose: 0.5 mg Documented by: Lorazepam (Ativan -) 0.5 mg PO Q4H PRN PRN Reason: Symptoms of Withdrawal Stop: 10/02/19 23:59 Last Admin: 09/30/19 20:11 Dose: 0.5 mg Documented by: Lorazepam (Ativan -) 0.5 mg PO ONCE ONE Stop: 10/03/19 05:01 Metoprolol Tartrate (Lopressor -) 25 mg PO BID [facility] Last Admin: 10/01/19 21:29 Dose: 25 mg Documented by: Multivitamins/Minerals/Vitamin C (Tab-A-Vit -) 1 tab PO DAILY [facility] Last Admin: 10/01/19 09:41 Dose: 1 tab Documented by: Pantoprazole Sodium (Protonix -) 40 mg PO DAILY [facility] Last Admin: 10/01/19 09:42 Dose: 40 mg Documented by: Sertraline HCl (Zoloft -) 75 mg PO DAILY [facility] Last Admin: 10/01/19 09:42 Dose: 75 mg Documented by: Thiamine HCl (Vitamin B1 -) 100 mg PO DAILY [facility] Last Admin: 10/01/19 09:41 Dose: 100 mg Documented by: - Objective Vital Signs: Vital Signs Temperature 98.7 F 10/02/19 06:00 Pulse Rate 67 10/02/19 06:00 Respiratory Rate 10/02/19 06:00 Blood Pressure 152/96 10/02/19 06:00 O2 Sat by Pulse Oximetry (%) 99 10/01/19 21:00 Constitutional: Yes: Well Nourished, No Distress, Calm Cardiovascular: Yes: Regular Rate and Rhythm, S1, S2. No: Gallop, Murmur Respiratory: Yes: Regular, CTA Bilaterally. No: Accessory Muscle Use Extremities: No: Cold Edema: No Neurological: Yes: Alert. No: Seizure Psychiatric: No: Agitated Labs: CBC, BMP 10/01/19 07:15 10/01/19 07:15 INR, PTT INR 0.98 (0.83-1.09) 09/29/19 17:15 Assessment/Plan Echo: nl LV/RV, valve fxn WNL tele: NSR a/p: 63 m hx htn, hld, dm, cad s/p remote pci sent for etoh detox. cad, remote pci: -no signs acs, chf -cont stan, bb, ccb, asa. hold statin due to elevated lfts. -echo normal 09/29 htn: normal/stable -cont current meds hld: -hold statin due to elevated lfts. etoh detox: -on ativan, plans per primary Mild hypokalemia: -Replete, daily lytes D/C TELE
[2019-10-02 08:00] LABS: BLOOD UREA NITROGEN 13.4 mg/dL (7-18); CALCIUM 8.6 mg/dL (8.5-10.1); CREATININE 0.6 mg/dL (0.55-1.3); POTASSIUM 3.7 mmol/L (3.5-5.1)
[2019-10-02] MEDS: amLODIPine BESYLATE 10 MG TABLET (FP) PO SCH (09:28)
[2019-10-02] MEDS: ASPIRIN COATED 81 MG TABLET.EC PO SCH (09:28)
[2019-10-02] MEDS: PANTOPRAZOLE 40 MG TABLET PO SCH (09:28)
[2019-10-02] MEDS: FOLIC ACID 1 MG TABLET (FP) PO SCH (09:28)
[2019-10-02] MEDS: METOPROLOL TARTRATE 25 MG TABLET (FP) PO SCH ×2 (09:28→21:32)
[2019-10-02] MEDS: SERTRALINE HCL 50 MG TABLET (FP) PO SCH (09:28)
[2019-10-02] MEDS: ENOXAPARIN NA (PORCINE) 40 MG/0.4 ML DISP.SYRIN SQ SCH (09:28)
[2019-10-02] MEDS: MULTIVITAMINS (DAILY MVI) TABLET (FP) PO SCH (09:28)
[2019-10-02] MEDS: LISINOPRIL 5 MG TABLET (FP) PO SCH (09:28)
[2019-10-02] MEDS: levETIRAcetam 500 MG TABLET (FP) PO SCH ×2 (09:28→21:32)
[2019-10-02] MEDS: THIAMINE HCL 100 MG TABLET (FP) PO SCH (09:28)
--- NOTE | 2019-10-02 13:47 | PN ---
Progress Note (short form) - Note Progress Note: Last Vital Signs Temp Pulse Resp BP Pulse Ox 97.9 F 73 22 H 128/77 99 10/02/19 09:34 10/02/19 10:45 10/02/19 09:34 10/02/19 10:45 10/02/19 08:28 Laboratory Last Values 63 y.o. M PMH HTN, hyperlipidemia, CAD, cardiac stents, type 2 DM, alcohol abuse, heroin abuse, cocaine abuse, anxiety and depression who presented to the ED from [facility] for evaluation of chest pain. GEN: Lying in bed NAD Heart: S1S2 RRR Pulm: CTABL EXTR: no edema. Overnight pt pulled IV; new IV inserted. #Atypical chest pain -resolved -cardio following #EtOH abuse -continue ativan detox; day #4 -thamine, FA, MV #Acute alcoholic hepatitis -LFT's improved -maddrey's discriminiant function 8.0; no indication for steroid tx at [facility] time -holding statin #incidental lung nodule -seen on CT -outpt f/u #FEN -no standing fluids, encourage po intake -low carb/fat/chol diet #Dispo -pending bed availability at [facility] <Marcia Ferguson - Last Filed: 10/02/19 16:59> - Note Progress Note: Attending attestation: Plan of care discussed with the resident. Patient seen and examined at bedside during my rounds. He endorses he is still having some anxiety. He endorses having a cough. The patient is a smoker. The patient remains in acute alcohol withdrawals. On exam he is alert awake and oriented to self and year. He thought he was at [facility]. His abdomen is soft nontender nondistended. He has bilateral rhonchorous breath sounds on lung exam. No lower extremity edema of the bilateral lower extremities. The patient's leukocytosis is improving. Hypokalemia has resolved with repletion's. Continue to trend LFTs. Continue [facility] protocol for acute alcohol withdrawal. Rest as per resident's note above. Patient is currently pending a bed at [facility] which is why his discharge has been held up. <Kodak Valderrama - Last Filed: 10/02/19 19:06>
[2019-10-02] MEDS: LORazepam 0.5 MG TABLET PO PRN ×2 (14:22→21:33)
[2019-10-02] MEDS ORDERED: LORazepam 2 MG/ML SDV VIAL IVPUSH ONE (16:16)
[2019-10-03] MEDS ORDERED: LORazepam 0.5 MG TABLET PO ONE ×2 (05:00)
[2019-10-03] MEDS: INSULIN SLIDING SCALE (NOVOLOG) 1 VIAL SQ SCH ×4 (06:08→21:23)
--- NOTE | 2019-10-03 07:07 | PN ---
Progress Note, Physician Chief Complaint: etoh detox History of Present Illness: jittery still. "a little" short of breath no cp, palp, orthopnea, swelling - Current Medication List Current Medications: Active Medications Albuterol Sulfate (Ventolin Hfa Inhaler -) 2 puff IH Q4H PRN PRN Reason: SHORT OF BREATH/WHEEZING Amlodipine Besylate (Norvasc -) 10 mg PO DAILY [facility] Last Admin: 10/02/19 09:28 Dose: 10 mg Documented by: Aspirin (Ecotrin -) 81 mg PO DAILY [facility] Last Admin: 10/02/19 09:28 Dose: 81 mg Documented by: Enoxaparin Sodium (Lovenox -) 40 mg SQ DAILY [facility] Last Admin: 10/02/19 09:28 Dose: 40 mg Documented by: Folic Acid (Folic Acid -) 1 mg PO DAILY [facility] Last Admin: 10/02/19 09:28 Dose: 1 mg Documented by: Insulin Aspart (Novolog Vial Sliding Scale -) 1 vial SQ [facility]; Protocol Last Admin: 10/03/19 06:08 Dose: 2 units Documented by: Levetiracetam (Keppra -) 500 mg PO BID [facility] Last Admin: 10/02/19 21:32 Dose: 500 mg Documented by: Lisinopril (Prinivil) 5 mg PO DAILY [facility] Last Admin: 10/02/19 09:28 Dose: 5 mg Documented by: Metoprolol Tartrate (Lopressor -) 25 mg PO BID [facility] Last Admin: 10/02/19 21:32 Dose: 25 mg Documented by: Multivitamins/Minerals/Vitamin C (Tab-A-Vit -) 1 tab PO DAILY [facility] Last Admin: 10/02/19 09:28 Dose: 1 tab Documented by: Pantoprazole Sodium (Protonix -) 40 mg PO DAILY [facility] Last Admin: 10/02/19 09:28 Dose: 40 mg Documented by: Sertraline HCl (Zoloft -) 75 mg PO DAILY [facility] Last Admin: 10/02/19 09:28 Dose: 75 mg Documented by: Thiamine HCl (Vitamin B1 -) 100 mg PO DAILY [facility] Last Admin: 10/02/19 09:28 Dose: 100 mg Documented by: - Objective Vital Signs: Vital Signs Temperature 98.1 F 10/03/19 06:00 Pulse Rate 59 L 10/03/19 06:00 Respiratory Rate 18 10/03/19 06:00 Blood Pressure 120/67 10/03/19 06:00 O2 Sat by Pulse Oximetry (%) 99 10/02/19 21:00 Constitutional: Yes: Well Nourished, No Distress, Calm Cardiovascular: Yes: Regular Rate and Rhythm, JVD, Gallop. No: Murmur Respiratory: Yes: Regular, CTA Bilaterally, Accessory Muscle Use Extremities: No: Cold Edema: No Neurological: Yes: Alert. No: Lethargy Psychiatric: No: Agitated Labs: CBC, BMP 10/01/19 07:15 10/02/19 06:40 INR, PTT INR 0.98 (0.83-1.09) 09/29/19 17:15 Assessment/Plan Echo: nl LV/RV, valve fxn WNL a/p: 63 m hx htn, hld, dm, cad s/p remote pci sent for etoh detox. cad, remote pci: -no signs acs, chf -cont stan, bb, ccb, asa. hold statin due to elevated lfts. -echo normal 09/29 -mild sob, suspect nonspecific sx related to etoh withdrawal, comfortable with clear lungs, normal sats, no volume on exam--observe htn: normal/stable -cont current meds hld: -hold statin due to elevated lfts. etoh detox: -on ativan, plans per primary Mild hypokalemia: -Replete, daily lytes TELE OFF
[2019-10-03] MEDS ORDERED: POTASSIUM CHLORIDE TABS 20 MEQ TABLET.ER (FP) PO ONE (07:28)
[2019-10-03] MEDS ORDERED: LORazepam 2 MG/ML SDV VIAL IVPUSH ONE (09:17)
[2019-10-03] MEDS: SERTRALINE HCL 50 MG TABLET (FP) PO SCH (09:37)
[2019-10-03] MEDS: ENOXAPARIN NA (PORCINE) 40 MG/0.4 ML DISP.SYRIN SQ SCH (09:38)
[2019-10-03] MEDS: METOPROLOL TARTRATE 25 MG TABLET (FP) PO SCH ×2 (09:38→21:22)
[2019-10-03] MEDS: PANTOPRAZOLE 40 MG TABLET PO SCH (09:38)
[2019-10-03] MEDS: amLODIPine BESYLATE 10 MG TABLET (FP) PO SCH (09:38)
[2019-10-03] MEDS: levETIRAcetam 500 MG TABLET (FP) PO SCH ×2 (09:38→21:22)
[2019-10-03] MEDS: LISINOPRIL 5 MG TABLET (FP) PO SCH (09:38)
[2019-10-03] MEDS: MULTIVITAMINS (DAILY MVI) TABLET (FP) PO SCH (09:38)
[2019-10-03] MEDS: THIAMINE HCL 100 MG TABLET (FP) PO SCH (09:38)
[2019-10-03] MEDS: ASPIRIN COATED 81 MG TABLET.EC PO SCH (09:38)
[2019-10-03] MEDS: FOLIC ACID 1 MG TABLET (FP) PO SCH (09:38)
[2019-10-03] MEDS ORDERED: LORazepam 1 MG TABLET PO PRN (11:00)
[2019-10-03] MEDS: LORazepam 1 MG TABLET PO SCH ×3 (11:44→22:37)
[2019-10-03 12:39] LABS: ALBUMIN 3.1 g/dl (3.4-5.0); BILIRUBIN,TOTAL 0.4 mg/dL (0.2-1); BLOOD UREA NITROGEN 13.7 mg/dL (7-18); CALCIUM 8.9 mg/dL (8.5-10.1); CREATININE 0.6 mg/dL (0.55-1.3); POTASSIUM 4.4 mmol/L (3.5-5.1); TOT PROT 5.9 g/dl (6.4-8.2)
--- NOTE | 2019-10-03 14:13 | PN ---
Progress Note (short form) - Note Progress Note: Subjective: patient c/o mild generalized headache Last Vital Signs Temp Pulse Resp BP Pulse Ox 98.4 F 71 20 109/74 99 10/03/19 10:00 10/03/19 10:00 10/03/19 10:00 10/03/19 10:00 10/03/19 08:16 Gen: Lying in bed NAD HEENT: NCAT. Chest: S1S2 no mrg Pulm: RRR. No incr wob. Neur: Tremor w/ outstreteched hands. A/P: 63 y.o. M PMH HTN, HLD, IDDM, chronic tobacco usage, chronic EtOH usage, CAD(s/p stents x3, ~2014 [place]) transferred from [facility] for complaint of chest pain and SOB. #EtOH WD: -ciwa protocol; CIWA 12 on my exam this morning -fall, aspiration precautions -started on ativan protocol starting day #2/5 as patent has been receiving strictly prn, and in active withdrawal #dispo: pending bed availability at [facility] <Marcia Ferguson - Last Filed: 10/03/19 14:09> - Note Progress Note: Attending attestation: Plan of care discussed with the resident. Patient seen and examined at bedside during my rounds. He endorses he is still having some anxiety. He endorses having a cough. cough sounds better. mental status improved. The patient is a smoker. The patient remains in acute alcohol withdrawals but improving. On exam he is alert awake and oriented to self and year. His abdomen is soft nontender nondistended. He has bilateral clear breath sounds on lung exam. No lower extremity edema of the bilateral lower extremit ies. Hypokalemia has resolved with repletion's. Continue to trend LFTs. Continue CIWA protocol for acute alcohol withdrawal. Rest as per resident's note above. Patient is currently still pending a bed at [facility]. <Kodak Valderrama - Last Filed: 10/03/19 19:46>
[2019-10-03] MEDS ORDERED: PT OWN MED DRAWER 7, Y5N ONE (23:33)
[2019-10-04] MEDS: LORazepam 1 MG TABLET PO SCH (05:08)
[2019-10-04] MEDS: INSULIN SLIDING SCALE (NOVOLOG) 1 VIAL SQ SCH (06:04)
[2019-10-04] MEDS ORDERED: ALBUTEROL SO4 HFA INHALER IH PRN (07:48)
[2019-10-04 08:03] LABS: BLOOD UREA NITROGEN 16.5 mg/dL (7-18); CALCIUM 8.9 mg/dL (8.5-10.1); CREATININE 0.6 mg/dL (0.55-1.3); POTASSIUM 3.9 mmol/L (3.5-5.1)
[2019-10-04] MEDS ORDERED: ONDANSETRON *ODT* 4 MG TABLET SL ONE (09:00)
[2019-10-04] MEDS ORDERED: PT OWN MED DRAWER 7, Y5N ONE (09:25)
[2019-10-04 09:38] VITALS: BP 108/82; PULSE 68; TEMP 98
[2019-10-04] MEDS ORDERED: SERTRALINE HCL 50 MG TABLET (FP) PO SCH (10:00)
[2019-10-04] MEDS ORDERED: ASPIRIN COATED 81 MG TABLET.EC PO SCH (10:00)
[2019-10-04] MEDS ORDERED: PANTOPRAZOLE 40 MG TABLET PO SCH (10:00)
[2019-10-04] MEDS ORDERED: ENOXAPARIN NA (PORCINE) 40 MG/0.4 ML DISP.SYRIN SQ SCH (10:00)
[2019-10-04] MEDS ORDERED: METOPROLOL TARTRATE 25 MG TABLET (FP) PO SCH (10:00)
[2019-10-04] MEDS ORDERED: THIAMINE HCL 100 MG TABLET (FP) PO SCH (10:00)
[2019-10-04] MEDS ORDERED: levETIRAcetam 500 MG TABLET (FP) PO SCH (10:00)
[2019-10-04] MEDS ORDERED: amLODIPine BESYLATE 10 MG TABLET (FP) PO SCH (10:00)
[2019-10-04] MEDS ORDERED: LISINOPRIL 5 MG TABLET (FP) PO SCH (10:00)
[2019-10-04] MEDS ORDERED: FOLIC ACID 1 MG TABLET (FP) PO SCH (10:00)
[2019-10-04] MEDS ORDERED: MULTIVITAMINS (DAILY MVI) TABLET (FP) PO SCH (10:00)
[2019-10-04] MEDS ORDERED: INSULIN SLIDING SCALE (NOVOLOG) 1 VIAL SQ SCH (11:00)
--- NOTE | 2019-10-04 11:03 | PN ---
Progress Note (short form) - Note Progress Note: Chief Complaint: etoh detox History of Present Illness: no cp, palp, sob, orthopnea, swelling - Current Medication List Current Medications: Active Medications Current Medications Generic Name Dose Route Start Last Admin Trade Name Freq PRN Reason Stop Dose Admin Albuterol Sulfate 2 puff 10/04/19 07:48 Ventolin Hfa Inhaler - IH Q4H PRN SHORT OF BREATH/WHEEZING Amlodipine Besylate 10 mg 10/04/19 10:00 10/04/19 09:32 Norvasc - PO 10 mg DAILY RICHIE Administration Aspirin 81 mg 10/04/19 10:00 10/04/19 09:31 Ecotrin - PO 81 mg DAILY RICHIE Administration Enoxaparin Sodium 40 mg 10/04/19 10:00 10/04/19 09:32 Lovenox - SQ 40 mg DAILY RICHIE Administration Folic Acid 1 mg 10/04/19 10:00 10/04/19 09:31 Folic Acid - PO 1 mg DAILY RICHIE Administration Insulin Aspart 1 vial 10/04/19 11:00 Novolog Vial Sliding Scale - SQ ACHS [facility] Protocol Levetiracetam 500 mg 10/04/19 10:00 10/04/19 09:32 Keppra - PO 500 mg BID RICHIE Administration Lisinopril 5 mg 10/04/19 10:00 10/04/19 09:32 Prinivil PO 5 mg DAILY RICHIE Administration Lorazepam 1 mg 10/03/19 11:00 10/04/19 05:08 Ativan - PO 10/04/19 23:01 1 mg 0500,1100,1700,2300 RICHIE Administration Lorazepam 1 mg 10/03/19 11:00 Ativan - PO 10/05/19 23:59 Q4H PRN Symptoms of Withdrawal Lorazepam 0.5 mg 10/05/19 05:00 Ativan - PO 10/05/19 23:01 Q6H RICHIE Lorazepam 0.5 mg 10/06/19 00:00 Ativan - PO 10/07/19 00:00 Q4H PRN Symptoms of Withdrawal Lorazepam 0.5 mg 10/07/19 05:00 Ativan - PO 10/07/19 05:01 ONCE ONE Metoprolol Tartrate 25 mg 10/04/19 10:00 10/04/19 09:31 Lopressor - PO 25 mg BID RICHIE Administration Multivitamins/Minerals/Vitamin C 1 tab 10/04/19 10:00 10/04/19 09:32 Tab-A-Vit - PO 1 tab DAILY RICHIE Administration Pantoprazole Sodium 40 mg 10/04/19 10:00 10/04/19 09:32 Protonix - PO 40 mg DAILY RICHIE Administration Sertraline HCl 75 mg 10/04/19 10:00 10/04/19 09:31 Zoloft - PO 75 mg DAILY RICHIE Administration Thiamine HCl 100 mg 10/04/19 10:00 10/04/19 09:33 Vitamin B1 - PO 100 mg DAILY RICHIE Administration Vital Signs Period Temp Pulse Resp BP Sys/Taylor Pulse Ox Last 24 Hr 97.3 F-98.6 F 62-70 18-20 100-128/64-82 95 Constitutional: Yes: Well Nourished, No Distress, Calm Cardiovascular: Yes: Regular Rate and Rhythm, JVD, Gallop. No: Murmur Respiratory: Yes: Regular, CTA Bilaterally, Accessory Muscle Use Extremities: No: Cold Edema: No Neurological: Yes: Alert. No: Lethargy Psychiatric: No: Agitated Labs: CBC, BMP 10/01/19 07:15 10/04/19 06:30 Assessment/Plan Echo: nl LV/RV, valve fxn WNL a/p: 63 m hx htn, hld, dm, cad s/p remote pci sent for etoh detox. cad, remote pci: -no signs acs, chf -cont stan, bb, ccb, asa. hold statin due to elevated lfts. -echo normal 09/29 -mild sob, suspect nonspecific sx related to etoh withdrawal, comfortable with clear lungs, normal sats, no volume on exam htn: normal/stable -cont current meds hld: -hold statin due to elevated lfts. etoh detox: -on ativan, plans per primary Mild hypokalemia: -Replete, daily lytes TELE OFF
--- NOTE | 2019-10-04 17:29 | PN ---
Teaching Attending Note Name of Resident: Caitlin Lara ATTENDING PHYSICIAN STATEMENT I saw and evaluated the patient. I reviewed the resident's note and discussed the case with the resident. I agree with the resident's findings and plan as documented. SUBJECTIVE: seen at 10 am no pain, feels better . no OSB OBJECTIVE: NAD, flat affect,MMM Cv: RRR, no MRG Lungs: CTAB Abd: soft, NT, Nd , NL BS. Ext: No edema . ASSESSMENT AND PLAN: 63 y/o man with h/o HTN, HLD, DM, CAD (s/p stents), Active Alcohol abuse, previous Heroin abuse ( 10 yr) , previous cocaine abuse ( 2 yrs) , Tobacco use and Anxiety and depression who presented to [facility] then transferred here for CP . 1- CP: atypical . - cont aspirin . - cont BB, statin - cont lisinopril 2- ETOH withdrawal . cont detox at [facility] 4- Alcoholic hepatitis : LFTs improved 5- H/o DM : confirmed with his pharmacy that he is on 16 units of levemir daily . cont that at dc 6- depression: cont zoloft 7- Renal cyst and lung nodule: f/u as out pt . pt notified of importance to follow . 8- HTN: cont BB, norvasc, adn add ACEI transfer to [facility] for continued detox
[2019-10-05] MEDS ORDERED: LORazepam 0.5 MG TABLET PO SCH (05:00)
[2019-10-06] MEDS ORDERED: LORazepam 0.5 MG TABLET PO PRN
[2019-10-07] MEDS ORDERED: LORazepam 0.5 MG TABLET PO ONE (05:00)
== END 2019-10-04 10:45 | disposition other institution (70) ==
LOC: JER 16:22 → UNDOADMOB 19:51 → INTOOBSV 19:51 → JERBED 19:51 → J4S 09-30 20:29 → JERBED 09-30 20:29 → J4S 10-01 10:48 → J4W 10-03 15:55
PROVIDERS: ADMIT Internal Medicine; ATTEND Internal Medicine
PROC: 3E0F7GC Introduction of Other Therapeutic Substance into Respiratory Tract, Via Natural or Artificial Opening (ICD-10-PCS; principal; 2019-10-01)
PROC: 3E013VG Introduction of Insulin into Subcutaneous Tissue, Percutaneous Approach (ICD-10-PCS; 2019-10-01)
PROC: 3E013VG Introduction of Insulin into Subcutaneous Tissue, Percutaneous Approach (ICD-10-PCS; 2019-10-01)
PROC: 3E033NZ Introduction of Analgesics, Hypnotics, Sedatives into Peripheral Vein, Percutaneous Approach (ICD-10-PCS; 2019-10-01)
PROC: 3E033GC Introduction of Other Therapeutic Substance into Peripheral Vein, Percutaneous Approach (ICD-10-PCS; 2019-10-01)
PROC: 3E0337Z Introduction of Electrolytic and Water Balance Substance into Peripheral Vein, Percutaneous Approach (ICD-10-PCS; 2019-10-01)
DX: R07.89 Other chest pain (principal); F10.239 Alcohol dependence with withdrawal, unspecified; K70.10 Alcoholic hepatitis without ascites; E11.9 Type 2 diabetes mellitus without complications; R91.1 Solitary pulmonary nodule; N28.1 Cyst of kidney, acquired; I10 Essential (primary) hypertension; E78.5 Hyperlipidemia, unspecified; I25.10 Atherosclerotic heart disease of native coronary artery without angina pectoris; F17.210 Nicotine dependence, cigarettes, uncomplicated; Z95.5 Presence of coronary angioplasty implant and graft; F19.90 Other psychoactive substance use, unspecified, uncomplicated; Z72.89 Other problems related to lifestyle; F32.9 Major depressive disorder, single episode, unspecified; E87.6 Hypokalemia; Z79.4 Long term (current) use of insulin; R56.9 Unspecified convulsions
CPT/HCPCS: 36415; 71045-TC-FY; 71250-TC; 74176-TC; 80048; 80053; 80061; 80307; 81003; 82550; 82962; 83036; 83690; 83721; 83735; 84100; 84443; 84484; 85025; 85610; 85730; 86780; 87040; 87086; 93005; 93010; 93306-TC; 94640; 96361; 96365; 96367; 96372; 96375; 96376; 97116-GP; 97161-GP; 99285-25; G0378; Q0162; U0003

== ENCOUNTER 2019-10-04 11:32 | Inpatient (IN) | payer OTHER ==
--- NOTE | 2019-10-04 12:05 | BHS.RME ---
Substance Use & Tx History - Substance Use History Alcohol Substance amount: 2 x 40 ounce beer Frequency of use: Daily Substance route: Oral Date of Last Use: 09/28/19 (First drink age 21 y. No seizues, no blackouts. 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 No ODs. No Narcan at home) Nicotine Substance amount: one pack Frequency of use: Daily Substance route: Smoking Date of Last Use: 09/29/19 (First smoke age 21y) Physical/Psych/Mental Status - Behavior General Behavior: Decreased activity Eye Contact: Normal - Cooperativeness Cooperativeness: Cooperative - Thinking Thought Processes: Tight Thought content: Future oriented - Physical Health Problems Is patient presently having any pain?: No Does patient presently have any injuries (include location): No Does patient currently have a fever: No COWS - Scale Resting Pulse: 0= [place] 80 or Below Sweatin= No chills or Flushing Restless Observation: 0= Sits Still Pupil Size: 0= Normal to Room Light Bone or Joint Aches: 0= None Runny Nose/ Eye Tearin= None GI Upset > 30mins: 0= None Tremor Observation: 1= Tremor [place], Not Seen Yawning Observation: 0= None Anxiety or Irritability: 1=Feels Anxious/Irritable Goose Flesh Skin: 0=Smooth Skin COWS Score: 2 CIWA Nausea/Vomitin-Mild Nausea/No Vomiting Muscle Tremors: 2 Anxiety: 1-Mildly Anxious Agitation: 0-Normal Activity Paroxysmal Sweats: No Perspiration Orientation: 1-Uncertain about Date Tacttile Disturbances: 0-None Auditory Disturbances: 0-None Visual Disturbances: 0-None Headache: 0-None Present CIWA-Ar Total Score: 5
--- NOTE | 2019-10-04 13:10 | HP ---
COWS - Scale Resting Pulse: 0= [place] 80 or Below Sweatin= No chills or Flushing Restless Observation: 0= Sits Still Pupil Size: 0= Normal to Room Light Bone or Joint Aches: 0= None Runny Nose/ Eye Tearin= None GI Upset > 30mins: 0= None Tremor Observation: 1= Tremor [place], Not Seen Yawning Observation: 0= None Anxiety or Irritability: 1=Feels Anxious/Irritable Goose Flesh Skin: 0=Smooth Skin COWS Score: 2 CIWA Score Nausea/Vomitin-Mild Nausea/No Vomiting Muscle Tremors: 2 Anxiety: 1-Mildly Anxious Agitation: 0-Normal Activity Paroxysmal Sweats: No Perspiration Orientation: 1-Uncertain about Date Tacttile Disturbances: 0-None Auditory Disturbances: 0-None Visual Disturbances: 0-None Headache: 0-None Present CIWA-Ar Total Score: 5 - Admission Criteria OASAS Guidelines: Admission for Medically Managed Detox: Requires at least one of the followin. CIWA greater than 12 2. Seizures within the past 24 hours 3. Delirium tremens within the past 24 hours 4. Hallucinations within the past 24 hours 5. Acute intervention needed for co occurring medical disorder 6. Acute intervention needed for co occurring psychiatric disorder 7. Severe withdrawal that cannot be handled at a lower level of care (continued vomiting, continued diarrhea, abnormal vital signs) requiring intravenous medication and/or fluids 8. Admitting History and Physical - Admission Chief Complaint: Mr. Liu is a 63 yo man who presents to [facility] after transfer from [facility]. He is here to complete an alcohol detox. History of Present Illness: Mr. Liu is a 63 yo man who presents to [facility] after transfer from [facility]. He is here to complete an alcohol detox. He presented to [facility] on 09/28 and was sent to [facility] with complaints of chest pain. His workup at [facility] revealed no acute coronary syndrome. He had an Echo done: nl LV/RV, nl valves. He was treated for hypokalemia. The providers at [facility] recommend: continue ANALY, BB, CCB, ASA, hold statin due to elevated LFTs. PMH: HTN, HLD, IDDM, CECILIO (s/p stents x 3 ~2014) PSH: stents Psych: none SOC: with brohter Legal: no Substance Use History Alcohol Substance amount: 2 x 40 ounce beer Frequency of use: Daily Substance route: Oral Date of Last Use: 09/28/19 (First drink age 21 y. No seizues, no blackouts. 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 No ODs. No Narcan at home) Nicotine Substance amount: one pack Frequency of use: Daily Substance route: Smoking Date of Last Use: 09/29/19 (First smoke age 21y) History Source: Patient Limitations to Obtaining History: No Limitations - Smoking History Smoking history: Current every day smoker Have you smoked in the past 12 months: Yes Aproximately how many cigarettes per day: 20 Admission [facility] Allergies/Adverse Reactions: Allergies Allergy/AdvReac Type Severity Reaction Status Date / Time No Known Allergies Allergy Verified 10/04/19 13:08 Exam Limitations: No Limitations - Ebola screening Have you traveled outside of the country in the last 21 days: No Have you been sick,other than usual withdrawal symptoms: No Do you have a fever: No - Review of Systems Constitutional: No Symptoms Reported EENT: reports: No Symptoms Reported Respiratory: reports: No Symptoms reported Cardiac: reports: No Symptoms Reported GI: reports: Nausea : reports: No Symptoms Reported Musculoskeletal: reports: No Symptoms Reported Integumentary: reports: No Symptoms Reported Neuro: reports: Unsteady Gait Endocrine: reports: No Symptoms Reported Hematology: reports: No Symptoms Reported Psychiatric: reports: Anxious Patient History - Patient Medical History Hx Chronic Obstructive Pulmonary Disease (COPD): No Hx Cardiac Disorders: Yes (CAD, stents) Hx Hypertension: Yes Hx Hypercholesterolemia: Yes Hx Diabetes: Yes - Patient Surgical History Hx Cardiac Surgery: Yes (CARDIAC STENT) - Smoking Cessation Smoking history: Current every day smoker Have you smoked in the past 12 months: Yes Aproximately how many cigarettes per day: 20 Initiated information on smoking cessation: Yes 'Breaking Loose' booklet given: 10/04/19 - Substances abused Alcohol Substance route: Oral Frequency: Daily Amount used: 2 pints of segun Age of first use: 21 Date of last use: 10/01/19 Heroin Substance route: Inhalation Frequency: No use in 30 days Amount used: 1 bag Age of first use: 21 Date of last use: 09/05/19 Admission Physical Exam [facility] - Physical General Appearance: Yes: No Apparent Distress, Nourished, Appropriately Dressed HEENTM: Yes: EOMI, Hearing grossly Normal, Normocephalic, Normal Voice Respiratory: Yes: Lungs Clear, Normal Breath Sounds Neck: Yes: Within Normal Limits, Supple Breast: Yes: Breast Exam Deferred Cardiology: Yes: Regular Rhythm, Regular Rate, S1, S2 Abdominal: Yes: Normal Bowel Sounds, Non Tender, Flat, Soft Genitourinary: Yes: Within Normal Limits Back: Yes: Normal Inspection Musculoskeletal: Yes: Other (slightly unsteady, short steps) Extremities: Yes: Non-Tender, Other (3mm scab right lateral ankle) Neurological: Yes: Alert, Normal Response Integumentary: Yes: Normal Color, Dry, Warm - Diagnostic (1) Alcohol dependence with withdrawal, uncomplicated Current Visit: Yes Status: Acute (2) CAD (coronary artery disease) Current Visit: No Status: Chronic (3) Hypokalemia Current Visit: Yes Status: Acute (4) Hyperlipidemia Current Visit: No Status: Chronic (5) Hypertension Current Visit: No Status: Chronic (6) IDDM (insulin dependent diabetes mellitus) Current Visit: Yes Status: Acute (7) Major depressive disorder Current Visit: Yes Status: Acute (8) Elevated liver function tests Current Visit: Yes Status: Acute Cleared for Admission [facility] - Detox or Rehab [facility] Level of Care: Medically Managed Detox Regimen/Protocol: Ativan Inpatient Rehab Admission - Rehab Decision to Admit Inpatient rehab admission?: No
[2019-10-04] MEDS ORDERED: MENTHOL/PHENOL 1 EACH UD MM PRN (13:22)
[2019-10-04] MEDS ORDERED: METHOCARBAMOL 500 MG TABLET PO PRN (13:22)
[2019-10-04] MEDS ORDERED: MAGNESIUM CITRATE 300 ML BOTTLE PO PRN (13:22)
[2019-10-04] MEDS ORDERED: IBUPROFEN 400 MG TABLET (FP) PO PRN (13:22)
[2019-10-04] MEDS ORDERED: ACETAMINOPHEN 325 MG TABLET (FP) PO PRN ×2 (13:22)
[2019-10-04] MEDS ORDERED: MAG HYDROX/AL HYDROX/SIMETH 30 ML UNIT-DOSE CUP PO PRN (13:22)
[2019-10-04] MEDS ORDERED: BISMUTH SUBSALICYLATE 524 MG/30 ML UD PO PRN (13:22)
[2019-10-04] MEDS ORDERED: MAGNESIUM HYDROX 2400MG/30ML ORAL SUSPENSION 30 ML CUP PO PRN (13:22)
[2019-10-04] MEDS ORDERED: NICOTINE POLACRILEX 2 MG GUM BUC PRN (13:22)
[2019-10-04 13:29] VITALS: BMI 25.0
[2019-10-04] MEDS: PRENATAL VITAMINS W/ FOLIC ACID TABLET (FP) PO SCH (14:34)
[2019-10-04] MEDS: NICOTINE 21 MG/24 HOURS TOPICAL PATCH TD SCH (14:34)
[2019-10-04] MEDS: hydrOXYzine PAMOATE 25 MG CAPSULE (FP) PO SCH ×3 (14:34→22:26)
[2019-10-04] MEDS: LORazepam 1 MG TABLET PO PRN ×2 (14:34→18:59)
[2019-10-04] MEDS: LISINOPRIL 5 MG TABLET (FP) PO SCH (14:34)
[2019-10-04] MEDS ORDERED: INSULIN (NOVOLOG) ASPART 100 UNITS/ML 10ML VIAL SQ ONE (16:54)
[2019-10-04] MEDS ORDERED: INSULIN SLIDING SCALE (NOVOLOG) 1 VIAL SQ ONE (17:15)
[2019-10-04] MEDS: ONDANSETRON *ODT* 4 MG TABLET SL PRN (18:57)
[2019-10-04] MEDS: METOPROLOL TARTRATE 25 MG TABLET (FP) PO SCH (22:25)
[2019-10-04] MEDS: levETIRAcetam 500 MG TABLET (FP) PO SCH (22:25)
[2019-10-04] MEDS: THIAMINE HCL 100 MG TABLET (FP) PO SCH (22:26)
[2019-10-04] MEDS: INSULIN (LEVEMIR) 100 UNITS/ML UNITS SQ SCH (22:27)
[2019-10-04] MEDS: MELATONIN 5 MG TABLETS PO SCH (22:56)
[2019-10-05] MEDS: hydrOXYzine PAMOATE 25 MG CAPSULE (FP) PO SCH (05:34)
[2019-10-05] MEDS ORDERED: INSULIN (NOVOLOG) ASPART 100 UNITS/ML 10ML VIAL SQ ONE (06:01)
--- NOTE | 2019-10-05 06:06 | PN ---
[facility] Progress Note Note: Patient's blood sugar level is 378mg/dl. Patient is asymptomatic Vital Signs Temperature 98.6 F 10/05/19 05:41 Pulse Rate 66 10/05/19 05:41 Respiratory Rate 18 10/05/19 05:41 Blood Pressure 141/90 10/05/19 05:41 O2 Sat by Pulse Oximetry (%) 96 10/05/19 05:41 Action: Insulin Novolog 6 units SQ ordered
[2019-10-05] MEDS ORDERED: INSULIN SLIDING SCALE (NOVOLOG) 1 VIAL SQ ONE ×3 (07:41→21:51)
[2019-10-05] MEDS: ONDANSETRON *ODT* 4 MG TABLET SL PRN ×2 (08:03→21:11)
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
--- NOTE | 2019-10-05 09:36 | PN ---
S CIWA - CIWA Score Nausea/Vomitin-Mild Nausea/No Vomiting Muscle Tremors: 2 Anxiety: 2 Agitation: 2 Paroxysmal Sweats: No Perspiration Orientation: 0-Oriented Tacttile Disturbances: 1-Very Mild Itch/Numbness Auditory Disturbances: 0-None Visual Disturbances: 0-None Headache: 1-Very Mild CIWA-Ar Total Score: 9 BHS Progress Note (SOAP) Subjective: alert,irritable,anxious,interrupted sleep,nausea,tremor Objective: 10/05/19 09:34 Vital Signs Temperature 98.6 F 10/05/19 05:41 Pulse Rate 66 10/05/19 05:41 Respiratory Rate 18 10/05/19 06:16 Blood Pressure 141/90 10/05/19 05:41 O2 Sat by Pulse Oximetry (%) 96 10/05/19 05:41 10/05/19 09:34 Laboratory Last Values POC Glucometer 377 UNITS (80-120) 10/05/19 08:02 10/05/19 09:35 labs pending Assessment: 10/05/19 09:35 withdrawal symptom Plan: continue detox ativan regimen,bgm monitoring with insulin coverage
--- NOTE | 2019-10-05 09:38 | PN ---
[facility] Progress Note Note: patient has covid 19 test at [facility] on 09/29/2019 not detected
[2019-10-05] MEDS ORDERED: SERTRALINE HCL 50 MG TABLET (FP) PO SCH (10:00)
[2019-10-05] MEDS: amLODIPine BESYLATE 10 MG TABLET (FP) PO SCH (10:42)
[2019-10-05] MEDS: ASPIRIN COATED 81 MG TABLET.EC PO SCH (10:42)
[2019-10-05] MEDS: LISINOPRIL 5 MG TABLET (FP) PO SCH (10:42)
[2019-10-05] MEDS: levETIRAcetam 500 MG TABLET (FP) PO SCH ×2 (10:42→21:59)
[2019-10-05] MEDS: NICOTINE 21 MG/24 HOURS TOPICAL PATCH TD SCH (10:43)
[2019-10-05] MEDS: PRENATAL VITAMINS W/ FOLIC ACID TABLET (FP) PO SCH (10:43)
[2019-10-05] MEDS: SERTRALINE HCL 50 MG, SERTRALINE HCL 25 MG PO SCH (10:43)
[2019-10-05] MEDS: LORazepam 2 MG TABLET PO SCH ×3 (10:44→21:59)
[2019-10-05] MEDS: INSULIN (NOVOLOG) ASPART 100 UNITS/ML 10ML VIAL SQ SCH ×3 (10:54→22:01)
[2019-10-05] MEDS: METOPROLOL TARTRATE 25 MG TABLET (FP) PO SCH ×2 (10:55→21:59)
[2019-10-05 11:30] LABS: ALBUMIN 2.9 g/dl (3.4-5.0); BILIRUBIN,TOTAL 0.4 mg/dL (0.2-1); BLOOD UREA NITROGEN 16.6 mg/dL (7-18); CALCIUM 8.9 mg/dL (8.5-10.1); CREATININE 0.9 mg/dL (0.55-1.3); POTASSIUM 4.4 mmol/L (3.5-5.1); TOT PROT 5.8 g/dl (6.4-8.2)
--- NOTE | 2019-10-05 16:20 | PN ---
BHS Progress Note Note: Called by staff, pt dizzy Worse when changing positions Describes as spinning BP sittin/70, standing 103/71 Rec: trial of Meclizine encourage fluids
[2019-10-05] MEDS: MECLIZINE HCL 12.5 MG TABLET PO PRN (19:01)
[2019-10-05] MEDS: THIAMINE HCL 100 MG TABLET (FP) PO SCH (21:59)
[2019-10-05] MEDS: INSULIN (LEVEMIR) 100 UNITS/ML UNITS SQ SCH (22:00)
[2019-10-05] MEDS: MELATONIN 5 MG TABLETS PO SCH (22:01)
[2019-10-06] MEDS: MECLIZINE HCL 12.5 MG TABLET PO PRN ×3 (01:11→15:37)
[2019-10-06] MEDS: LORazepam 1 MG TABLET PO SCH ×4 (05:16→22:00)
[2019-10-06] MEDS ORDERED: INSULIN SLIDING SCALE (NOVOLOG) 1 VIAL SQ ONE ×4 (07:58→21:00)
[2019-10-06] MEDS: INSULIN (NOVOLOG) ASPART 100 UNITS/ML 10ML VIAL SQ SCH ×4 (08:00→21:08)
[2019-10-06] MEDS: NICOTINE 21 MG/24 HOURS TOPICAL PATCH TD SCH (10:43)
[2019-10-06] MEDS: ASPIRIN COATED 81 MG TABLET.EC PO SCH (10:44)
[2019-10-06] MEDS: levETIRAcetam 500 MG TABLET (FP) PO SCH ×2 (10:44→22:00)
[2019-10-06] MEDS: SERTRALINE HCL 50 MG, SERTRALINE HCL 25 MG PO SCH (10:45)
[2019-10-06] MEDS: PRENATAL VITAMINS W/ FOLIC ACID TABLET (FP) PO SCH (10:45)
--- NOTE | 2019-10-06 11:17 | PN ---
S CIWA - CIWA Score Nausea/Vomitin-Mild Nausea/No Vomiting Muscle Tremors: 2 Anxiety: 2 Agitation: 1-Slight > Activity Paroxysmal Sweats: No Perspiration Orientation: 0-Oriented Tacttile Disturbances: 1-Very Mild Itch/Numbness Auditory Disturbances: 0-None Visual Disturbances: 0-None Headache: 1-Very Mild CIWA-Ar Total Score: 8 BHS Progress Note (SOAP) Subjective: alert,irritable,anxious,interrupted sleep,pain in the body Objective: 10/06/19 11:15 Vital Signs Temperature 97.3 F L 10/06/19 08:33 Pulse Rate 77 10/06/19 08:33 Respiratory Rate 18 10/06/19 08:33 Blood Pressure 112/68 10/06/19 08:33 O2 Sat by Pulse Oximetry (%) 97 10/06/19 05:42 Laboratory Last Values Sodium 138 mmol/L (136-145) 10/05/19 08:15 Potassium 4.4 mmol/L (3.5-5.1) 10/05/19 08:15 Chloride 102 mmol/L (98-107) 10/05/19 08:15 Carbon Dioxide 30 mmol/L (21-32) 10/05/19 08:15 Anion Gap 5 MMOL/L (8-16) L 10/05/19 08:15 BUN 16.6 mg/dL (7-18) 10/05/19 08:15 Creatinine 0.9 mg/dL (0.55-1.3) 10/05/19 08:15 Est GFR (CKD-EPI)AfAm 105.72 10/05/19 08:15 Est GFR (CKD-EPI)NonAf 91.22 10/05/19 08:15 POC Glucometer 253 UNITS (80-120) 10/06/19 05:14 Random Glucose 351 mg/dL (74-106) H 10/05/19 08:15 Calcium 8.9 mg/dL (8.5-10.1) 10/05/19 08:15 Total Bilirubin 0.4 mg/dL (0.2-1) 10/05/19 08:15 AST 58 U/L (15-37) H 10/05/19 08:15 ALT 107 U/L (13-61) H 10/05/19 08:15 Alkaline Phosphatase 181 U/L (45-117) H 10/05/19 08:15 Total Protein 5.8 g/dl (6.4-8.2) L 10/05/19 08:15 Albumin 2.9 g/dl (3.4-5.0) L 10/05/19 08:15 Assessment: 10/06/19 11:15 withdrawal symptom Plan: continue detox ativan regimen,bgm monitoring with insulin coverage,
[2019-10-06] MEDS: amLODIPine BESYLATE 10 MG TABLET (FP) PO SCH (14:45)
[2019-10-06] MEDS: LISINOPRIL 5 MG TABLET (FP) PO SCH (14:45)
[2019-10-06] MEDS: METOPROLOL TARTRATE 25 MG TABLET (FP) PO SCH ×2 (14:45→22:01)
[2019-10-06] MEDS: INSULIN (LEVEMIR) 100 UNITS/ML UNITS SQ SCH (21:08)
[2019-10-06] MEDS: THIAMINE HCL 100 MG TABLET (FP) PO SCH (22:00)
[2019-10-06] MEDS: MELATONIN 5 MG TABLETS PO SCH (22:00)
[2019-10-07] MEDS ORDERED: LORazepam 0.5 MG TABLET PO PRN
[2019-10-07] MEDS: LORazepam 0.5 MG TABLET PO SCH ×4 (05:18→21:59)
[2019-10-07] MEDS ORDERED: INSULIN SLIDING SCALE (NOVOLOG) 1 VIAL SQ ONE ×2 (07:34→17:09)
[2019-10-07] MEDS: INSULIN (NOVOLOG) ASPART 100 UNITS/ML 10ML VIAL SQ SCH ×4 (07:38→21:13)
[2019-10-07] MEDS: ASPIRIN COATED 81 MG TABLET.EC PO SCH (09:58)
[2019-10-07] MEDS: amLODIPine BESYLATE 10 MG TABLET (FP) PO SCH (09:58)
[2019-10-07] MEDS: NICOTINE 21 MG/24 HOURS TOPICAL PATCH TD SCH (09:58)
[2019-10-07] MEDS: SERTRALINE HCL 50 MG, SERTRALINE HCL 25 MG PO SCH (09:58)
[2019-10-07] MEDS: PRENATAL VITAMINS W/ FOLIC ACID TABLET (FP) PO SCH (09:59)
[2019-10-07] MEDS: levETIRAcetam 500 MG TABLET (FP) PO SCH ×2 (09:59→21:59)
[2019-10-07] MEDS: LISINOPRIL 5 MG TABLET (FP) PO SCH (09:59)
[2019-10-07] MEDS: METOPROLOL TARTRATE 25 MG TABLET (FP) PO SCH ×2 (09:59→21:59)
--- NOTE | 2019-10-07 10:16 | PN ---
S CIWA - CIWA Score Nausea/Vomitin-No Nausea/No Vomiting Muscle Tremors: 1-None Visible, but [place] Anxiety: 1-Mildly Anxious Agitation: 1-Slight > Activity Paroxysmal Sweats: No Perspiration Orientation: 0-Oriented Tacttile Disturbances: 0-None Auditory Disturbances: 0-None Visual Disturbances: 0-None Headache: 1-Very Mild CIWA-Ar Total Score: 4 BHS Progress Note (SOAP) Subjective: alert,irritable,anxious,interrupted sleep Objective: 10/07/19 10:14 Vital Signs Temperature 97.5 F L 10/07/19 08:43 Pulse Rate 84 10/07/19 08:43 Respiratory Rate 18 10/07/19 08:43 Blood Pressure 137/83 10/07/19 08:43 O2 Sat by Pulse Oximetry (%) 96 10/07/19 05:48 Assessment: 10/07/19 10:15 withdrawal symptom Plan: continue detox ativan regimen,discharge in am,bgm monitoring
[2019-10-07] MEDS: hydrOXYzine PAMOATE 25 MG CAPSULE (FP) PO PRN (12:30)
[2019-10-07] MEDS: INSULIN (LEVEMIR) 100 UNITS/ML UNITS SQ SCH (21:13)
[2019-10-07] MEDS: THIAMINE HCL 100 MG TABLET (FP) PO SCH (21:59)
[2019-10-07] MEDS: MELATONIN 5 MG TABLETS PO SCH (21:59)
[2019-10-08] MEDS ORDERED: LORazepam 0.5 MG TABLET PO ONE (05:00)
[2019-10-08] MEDS: INSULIN (NOVOLOG) ASPART 100 UNITS/ML 10ML VIAL SQ SCH ×2 (06:08→10:48)
[2019-10-08 06:15] VITALS: TEMP 97.1
--- NOTE | 2019-10-08 10:13 | PN ---
[facility] CIWA - CIWA Score Nausea/Vomitin-No Nausea/No Vomiting Muscle Tremors: None Anxiety: 1-Mildly Anxious Agitation: 0-Normal Activity Paroxysmal Sweats: No Perspiration Orientation: 0-Oriented Tacttile Disturbances: 0-None Auditory Disturbances: 0-None Visual Disturbances: 0-None Headache: 0-None Present CIWA-Ar Total Score: 1 S Progress Note (SOAP) Subjective: alert,no complaint Objective: 10/08/19 10:11 Vital Signs Temperature 97.1 F L 10/08/19 06:14 Pulse Rate 57 L 10/08/19 06:14 Respiratory Rate 18 10/08/19 06:14 Blood Pressure 115/72 10/08/19 06:14 O2 Sat by Pulse Oximetry (%) 97 10/08/19 06:14 10/08/19 10:11 Laboratory Last Values Sodium 138 mmol/L (136-145) 10/05/19 08:15 Potassium 4.4 mmol/L (3.5-5.1) 10/05/19 08:15 Chloride 102 mmol/L (98-107) 10/05/19 08:15 Carbon Dioxide 30 mmol/L (21-32) 10/05/19 08:15 Anion Gap 5 MMOL/L (8-16) L 10/05/19 08:15 BUN 16.6 mg/dL (7-18) 10/05/19 08:15 Creatinine 0.9 mg/dL (0.55-1.3) 10/05/19 08:15 Est GFR (CKD-EPI)AfAm 105.72 10/05/19 08:15 Est GFR (CKD-EPI)NonAf 91.22 10/05/19 08:15 POC Glucometer 122 UNITS (80-120) 10/08/19 05:40 Random Glucose 351 mg/dL (74-106) H 10/05/19 08:15 Calcium 8.9 mg/dL (8.5-10.1) 10/05/19 08:15 Total Bilirubin 0.4 mg/dL (0.2-1) 10/05/19 08:15 AST 58 U/L (15-37) H 10/05/19 08:15 ALT 107 U/L (13-61) H 10/05/19 08:15 Alkaline Phosphatase 181 U/L (45-117) H 10/05/19 08:15 Total Protein 5.8 g/dl (6.4-8.2) L 10/05/19 08:15 Albumin 2.9 g/dl (3.4-5.0) L 10/05/19 08:15 Assessment: 10/08/19 10:12 detox completed,no withdrawal symptom Plan: stable for discharge today,follow up with after care program as arrangement
--- NOTE | 2019-10-08 10:15 | DS ---
[facility] Summary Admission Date: 10/04/19 Discharge Date: 10/08/19 - History Present History: Alcohol Dependence Additional Comments: alerted oriented x3 ambulation lung clear on auscultation bilaterally no abdominal pain or tenderness detox completed,no withdrawal symptom patient need further level of care will benefit to go to rehab,patient agreed to go to rehab stable to go to rehab total time discharge 35 minutes seen by counselor Pertinent Past History: seizure syncope type 2 dm hypertension depression - Physical Exam Results Vital Signs: Vital Signs Temperature 97.1 F L 10/08/19 06:14 Pulse Rate 57 L 10/08/19 06:14 Respiratory Rate 18 10/08/19 06:14 Blood Pressure 115/72 10/08/19 06:14 O2 Sat by Pulse Oximetry (%) 97 10/08/19 06:14 Pertinent Admission Physical Exam Findings: withdrawal signs and symptom Vital Signs Temperature 97.1 F L 10/08/19 06:14 Pulse Rate 57 L 10/08/19 06:14 Respiratory Rate 18 10/08/19 06:14 Blood Pressure 115/72 10/08/19 06:14 O2 Sat by Pulse Oximetry (%) 97 10/08/19 06:14 Laboratory Last Values Sodium 138 mmol/L (136-145) 10/05/19 08:15 Potassium 4.4 mmol/L (3.5-5.1) 10/05/19 08:15 Chloride 102 mmol/L (98-107) 10/05/19 08:15 Carbon Dioxide 30 mmol/L (21-32) 10/05/19 08:15 Anion Gap 5 MMOL/L (8-16) L 10/05/19 08:15 BUN 16.6 mg/dL (7-18) 10/05/19 08:15 Creatinine 0.9 mg/dL (0.55-1.3) 10/05/19 08:15 Est GFR (CKD-EPI)AfAm 105.72 10/05/19 08:15 Est GFR (CKD-EPI)NonAf 91.22 10/05/19 08:15 POC Glucometer 122 UNITS (80-120) 10/08/19 05:40 Random Glucose 351 mg/dL (74-106) H 10/05/19 08:15 Calcium 8.9 mg/dL (8.5-10.1) 10/05/19 08:15 Total Bilirubin 0.4 mg/dL (0.2-1) 10/05/19 08:15 AST 58 U/L (15-37) H 10/05/19 08:15 ALT 107 U/L (13-61) H 10/05/19 08:15 Alkaline Phosphatase 181 U/L (45-117) H 10/05/19 08:15 Total Protein 5.8 g/dl (6.4-8.2) L 10/05/19 08:15 Albumin 2.9 g/dl (3.4-5.0) L 10/05/19 08:15 patient has covid 19 test on 09/29/2019 at [facility] not detected - Treatment Hospital Course: Detox Protocol Followed, Detoxed Safely, Responded well, Discharged Condition Good, Rehab Referral Accepted Patient has Accepted a Re[facility] Referral to: [facility] - Medication Discharge Medications: Ambulatory Orders Amlodipine Besylate [Norvasc -] 10 mg PO DAILY 09/29/19 Aspirin [Ecotrin] 81 mg PO DAILY 09/29/19 Levetiracetam 500 mg PO BID 09/29/19 Metoprolol Tartrate [Lopressor -] 25 mg PO BID 09/29/19 Sertraline HCl [Zoloft -] 1.5 tab PO DAILY 09/29/19 Folic Acid - 1 mg PO DAILY tablet 10/01/19 Lisinopril [Prinivil] 5 mg PO DAILY #30 tablet 10/01/19 Multivitamins [Multivit ([facility] Formulary)] 1 tab PO DAILY tab 10/01/19 Thiamine HCl [Vitamin B1 -] 100 mg PO DAILY tablet 10/01/19 Insulin Glargine,Hum.rec.anlog [Vannesaaglpraveen [place] U-100] 16 unit SQ HS 10/04/19 - Diagnosis (1) Alcohol dependence with withdrawal, uncomplicated Current Visit: Yes Status: Acute (2) Elevated liver function tests Current Visit: Yes Status: Acute (3) IDDM (insulin dependent diabetes mellitus) Current Visit: Yes Status: Chronic (4) Nicotine dependence Current Visit: Yes Status: Chronic (5) Seizure disorder Current Visit: Yes Status: Chronic (6) CAD (coronary artery disease) Current Visit: No Status: Chronic (7) Hyperlipidemia Current Visit: No Status: Chronic (8) Hypertension Current Visit: No Status: Chronic - AMA Did Patient Leave Against Medical Advice: No
[2019-10-08] MEDS: amLODIPine BESYLATE 10 MG TABLET (FP) PO SCH ×2 (10:26→10:48)
[2019-10-08] MEDS: LISINOPRIL 5 MG TABLET (FP) PO SCH ×2 (10:26→10:48)
[2019-10-08] MEDS: METOPROLOL TARTRATE 25 MG TABLET (FP) PO SCH ×2 (10:26→10:48)
[2019-10-08] MEDS: SERTRALINE HCL 50 MG, SERTRALINE HCL 25 MG PO SCH (10:26)
[2019-10-08] MEDS: levETIRAcetam 500 MG TABLET (FP) PO SCH (10:26)
[2019-10-08] MEDS: ASPIRIN COATED 81 MG TABLET.EC PO SCH (10:26)
[2019-10-08] MEDS: NICOTINE 21 MG/24 HOURS TOPICAL PATCH TD SCH (10:27)
[2019-10-08] MEDS: PRENATAL VITAMINS W/ FOLIC ACID TABLET (FP) PO SCH (10:27)
[2019-10-08] MEDS: hydrOXYzine PAMOATE 25 MG CAPSULE (FP) PO PRN (10:29)
[2019-10-08] MEDS ORDERED: INSULIN SLIDING SCALE (NOVOLOG) 1 VIAL SQ ONE (10:50)
[2019-10-08 13:24] VITALS: BP 124/77; PULSE 66
== END 2019-10-08 14:15 | disposition other institution (70) | DRG 773 ==
LOC: YASAS 11:32 → Y6N 13:08
PROVIDERS: ADMIT Allergy & Immunology; ATTEND Allergy & Immunology
PROC: HZ2ZZZZ Detoxification Services for Substance Abuse Treatment (ICD-10-PCS; principal; 2019-10-04)
DX: F10.230 Alcohol dependence with withdrawal, uncomplicated (principal); F11.23 Opioid dependence with withdrawal; F17.210 Nicotine dependence, cigarettes, uncomplicated; F19.282 Other psychoactive substance dependence with psychoactive substance-induced sleep disorder; F19.24 Other psychoactive substance dependence with psychoactive substance-induced mood disorder; F32.9 Major depressive disorder, single episode, unspecified; I25.10 Atherosclerotic heart disease of native coronary artery without angina pectoris; I10 Essential (primary) hypertension; Z95.5 Presence of coronary angioplasty implant and graft; E87.6 Hypokalemia; E78.5 Hyperlipidemia, unspecified; E11.9 Type 2 diabetes mellitus without complications; Z79.4 Long term (current) use of insulin; G40.909 Epilepsy, unspecified, not intractable, without status epilepticus; R94.5 Abnormal results of liver function studies; R42 Dizziness and giddiness; Z62.810 Personal history of physical and sexual abuse in childhood; Z79.82 Long term (current) use of aspirin
CPT/HCPCS: 36415; 80053; 82962; Q0162

== ENCOUNTER 2019-10-08 14:24 | Inpatient (IN) | payer OTHER ==
[2019-10-08] MEDS ORDERED: MAGNESIUM HYDROX 2400MG/30ML ORAL SUSPENSION 30 ML CUP PO PRN (15:10)
[2019-10-08] MEDS ORDERED: MENTHOL/PHENOL 1 EACH UD MM PRN (15:10)
[2019-10-08] MEDS ORDERED: LOPERAMIDE HCL 2 MG CAPSULE PO PRN (15:10)
[2019-10-08] MEDS ORDERED: NICOTINE POLACRILEX 2 MG GUM BUC PRN (15:10)
[2019-10-08] MEDS ORDERED: MAGNESIUM CITRATE 300 ML BOTTLE PO PRN (15:10)
[2019-10-08] MEDS ORDERED: P-EPHED 60MG/TRIPROLIDI 2.5MG TABLET PO PRN (15:10)
[2019-10-08] MEDS ORDERED: guaiFENesin 200 MG/10 ML 10 ML UNIT-DOSE CUPS PO PRN (15:10)
[2019-10-08] MEDS ORDERED: MAG HYDROX/AL HYDROX/SIMETH 30 ML UNIT-DOSE CUP PO PRN (15:10)
--- NOTE | 2019-10-08 15:10 | HP ---
[facility] Rehab Assess/Revision - Admission History Admitted to Rehab from: [facility] Date of Admission to Rehab: 10/08/2019 - Findings Detox History & Physical reviewed: Yes Concur with findings: Yes Comments/Additional Findings: for rehab as protocol Inpatient Rehab Admission - Rehab Decision to Admit Inpatient rehab admission?: Yes - Initial Determination Are CD services needed?: Yes Free of communicable disease: Yes Not in need of hospitalization: Yes - Rehab Admission Criteria Previous failed treatment: Yes Poor recovery environment: Yes Comorbidities: Yes Lacks judgement: Yes Patient is meeting Inpatient Rehab admission criteria:: Yes
--- NOTE | 2019-10-08 16:13 | PN ---
S Progress Note Note: Vital Signs Temperature 97.8 F 10/08/19 15:18 Pulse Rate 68 10/08/19 15:18 Respiratory Rate 18 10/08/19 15:18 Blood Pressure 105/68 10/08/19 15:18 O2 Sat by Pulse Oximetry (%) Patient is a 63 yo male with history of alcohol and opioid use disorder, requested HCV screening d/t risky behavior. order place for HCV continue to monitor
[2019-10-08] MEDS ORDERED: INSULIN SLIDING SCALE (NOVOLOG) 1 VIAL SQ ONE (16:28)
[2019-10-08] MEDS: INSULIN (NOVOLOG) ASPART 100 UNITS/ML 10ML VIAL SQ SCH ×2 (16:30→21:17)
--- NOTE | 2019-10-08 16:39 | CONSULT ---
[facility] Psychiatric Consult - Data Date of interview: 10/08/19 Admission source: [facility] Identifying data: Patient is a 63 year old male, father of one, unemployed, domiciled, and is supported by [facility]. This is one of multiple admissions for patient. Patient admitted to for alcohol and opioid dependence. Substance Abuse History: Substance Use History. Alcohol. Substance amount: 2 x 40 ounce beer. Frequency of use: Daily. Substance route: Oral. Date of Last Use: 09/28/19 (First drink age 21 y. No seizues, no blackouts. 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 Heroin. Substance amount: one bag. Frequency of use: Daily. Substance route: Inhalation (ex: sniffing or snorting). Date of Last Use: 08/31/19 (First use age 21y. No ODs. No Narcan at home). Nicotine. Substance amount: one pack. Frequency of use: Daily. Substance route: Smoking. Date of Last Use: 09/29/19 (First smoke age 21y). History Source: Patient. Limitations to Obtaining History: No Limitations. - Smoking History. Smoking history: Current every day smoker. Have you smoked in the past 12 months: Yes. Aproximately how many cigarettes per day: 20 Medical History: Significant for hypertension, dyslipidemia, type 2 diabetes mellitus, coronary artery disease, seizure disorder and history of stent placement x3. Psychiatric History: Patient denies history of psychiatric hospitalizations, outpatient care and suicide attempt. Mr. Liu states that he is prescribed zoloft from his primary care physician for depression. Patient seen by Dr. Guevara and was resumed on zoloft 75mg. At present patient reports feeling sad due to his current circumstances of relapsing. Patient denies thoughts or urges to hurt self or others. Physical/Sexual Abuse/Trauma History: denies. Mental Status Exam - Mental Status Exam Alert and Oriented to: Time, Place, Person Cognitive Function: Good Patient Appearance: Well Groomed Mood: Sad Affect: Mood Congruent Patient Behavior: Appropriate, Cooperative Speech Pattern: Appropriate Voice Loudness: Normal Thought Process: Goal Oriented Thought Disorder: Not Present Hallucinations: Denies Suicidal Ideation: Denies Homicidal Ideation: Denies Insight/Judgement: Poor Sleep: Fair Appetite: Fair Muscle strength/Tone: Normal Gait/Station: Other (Ambulates with a cane.) Psychiatric Findings - Problem List ([place] 1, 2,3) (1) Alcohol use disorder Current Visit: Yes Status: Acute (2) Opioid abuse Current Visit: Yes Status: Acute (3) Depressive disorder Current Visit: Yes Status: Chronic (4) Nicotine dependence Current Visit: Yes Status: Chronic - Initial Treatment Plan Initial Treatment Plan: Psychoeducation provided. Detoxification in progress. Will Continue Zoloft 75mg daily. Benefits and side effects discussed. Verbal consent given.
[2019-10-08] MEDS: hydrOXYzine PAMOATE 25 MG CAPSULE (FP) PO SCH ×2 (17:12→21:14)
[2019-10-08] MEDS: THIAMINE HCL 100 MG TABLET (FP) PO SCH (21:14)
[2019-10-08] MEDS: MELATONIN 5 MG TABLETS PO SCH (21:14)
[2019-10-08] MEDS: METOPROLOL TARTRATE 25 MG TABLET (FP) PO SCH (21:14)
[2019-10-08] MEDS: levETIRAcetam 500 MG TABLET (FP) PO SCH (21:14)
[2019-10-09] MEDS: hydrOXYzine PAMOATE 25 MG CAPSULE (FP) PO SCH ×5 (06:22→22:23)
[2019-10-09] MEDS ORDERED: INSULIN SLIDING SCALE (NOVOLOG) 1 VIAL SQ ONE ×3 (07:01→17:01)
[2019-10-09] MEDS: INSULIN (NOVOLOG) ASPART 100 UNITS/ML 10ML VIAL SQ SCH ×4 (07:01→22:27)
[2019-10-09] MEDS: NICOTINE 7 MG/24 HOURS TOPICAL PATCH TD SCH (10:03)
[2019-10-09] MEDS: METOPROLOL TARTRATE 25 MG TABLET (FP) PO SCH ×2 (10:04→22:23)
[2019-10-09] MEDS: SERTRALINE HCL 50 MG TABLET (FP) PO SCH (10:04)
[2019-10-09] MEDS: levETIRAcetam 500 MG TABLET (FP) PO SCH ×2 (10:05→22:23)
[2019-10-09] MEDS: ASPIRIN COATED 81 MG TABLET.EC PO SCH (10:05)
[2019-10-09] MEDS: PRENATAL VITAMINS W/ FOLIC ACID TABLET (FP) PO SCH (10:05)
[2019-10-09] MEDS: LISINOPRIL 5 MG TABLET (FP) PO SCH (10:07)
[2019-10-09] MEDS ORDERED: PT OWN MED DRAWER 7, Y5N ONE (10:09)
[2019-10-09] MEDS: MELATONIN 5 MG TABLETS PO SCH (22:22)
[2019-10-09] MEDS: THIAMINE HCL 100 MG TABLET (FP) PO SCH (22:23)
[2019-10-10] MEDS: hydrOXYzine PAMOATE 25 MG CAPSULE (FP) PO SCH ×5 (06:19→21:11)
[2019-10-10] MEDS: INSULIN (NOVOLOG) ASPART 100 UNITS/ML 10ML VIAL SQ SCH ×4 (07:03→21:15)
[2019-10-10] MEDS ORDERED: INSULIN SLIDING SCALE (NOVOLOG) 1 VIAL SQ ONE ×2 (07:03→21:15)
[2019-10-10] MEDS ORDERED: PT OWN MED DRAWER 7, Y5N ONE (08:51)
[2019-10-10] MEDS: PRENATAL VITAMINS W/ FOLIC ACID TABLET (FP) PO SCH (10:03)
[2019-10-10] MEDS: SERTRALINE HCL 50 MG TABLET (FP) PO SCH (10:04)
[2019-10-10] MEDS: ASPIRIN COATED 81 MG TABLET.EC PO SCH (10:04)
[2019-10-10] MEDS: METOPROLOL TARTRATE 25 MG TABLET (FP) PO SCH ×2 (10:04→21:11)
[2019-10-10] MEDS: levETIRAcetam 500 MG TABLET (FP) PO SCH ×2 (10:04→21:11)
[2019-10-10] MEDS: NICOTINE 7 MG/24 HOURS TOPICAL PATCH TD SCH (10:04)
[2019-10-10] MEDS: LISINOPRIL 5 MG TABLET (FP) PO SCH (11:00)
[2019-10-10] MEDS: ACETAMINOPHEN 325 MG TABLET (FP) PO PRN (14:54)
[2019-10-10] MEDS: THIAMINE HCL 100 MG TABLET (FP) PO SCH (21:11)
[2019-10-10] MEDS: MELATONIN 5 MG TABLETS PO SCH (21:16)
[2019-10-11] MEDS: hydrOXYzine PAMOATE 25 MG CAPSULE (FP) PO SCH ×2 (06:01→09:20)
[2019-10-11] MEDS: INSULIN (NOVOLOG) ASPART 100 UNITS/ML 10ML VIAL SQ SCH ×4 (06:49→21:07)
[2019-10-11] MEDS: ACETAMINOPHEN 325 MG TABLET (FP) PO PRN ×2 (06:56→11:52)
[2019-10-11] MEDS ORDERED: PT OWN MED DRAWER 7, Y5N ONE (08:34)
[2019-10-11] MEDS: levETIRAcetam 500 MG TABLET (FP) PO SCH ×2 (09:19→21:07)
[2019-10-11] MEDS: PRENATAL VITAMINS W/ FOLIC ACID TABLET (FP) PO SCH (09:19)
[2019-10-11] MEDS: METOPROLOL TARTRATE 25 MG TABLET (FP) PO SCH ×2 (09:19→21:07)
[2019-10-11] MEDS: ASPIRIN COATED 81 MG TABLET.EC PO SCH (09:19)
[2019-10-11] MEDS: SERTRALINE HCL 50 MG TABLET (FP) PO SCH (09:20)
[2019-10-11] MEDS: IBUPROFEN 400 MG TABLET (FP) PO PRN (09:20)
[2019-10-11] MEDS: NICOTINE 7 MG/24 HOURS TOPICAL PATCH TD SCH (09:21)
--- NOTE | 2019-10-11 09:38 | PN ---
S Progress Note Note: Patient complains of feeling anxious despite taking Vistaril 25 mg po Q 4hrs prn for anxiety. Vistaril dosage is increased to 50 mg po Q4hrs prn for insomnia
[2019-10-11] MEDS: LISINOPRIL 5 MG TABLET (FP) PO SCH (09:42)
[2019-10-11] MEDS ORDERED: hydrOXYzine PAMOATE 25 MG CAPSULE (FP) PO ONE (10:00)
[2019-10-11] MEDS ORDERED: INSULIN SLIDING SCALE (NOVOLOG) 1 VIAL SQ ONE (11:51)
[2019-10-11] MEDS: hydrOXYzine PAMOATE 50 MG CAPSULE (FP) PO PRN ×3 (13:22→21:07)
[2019-10-11] MEDS: THIAMINE HCL 100 MG TABLET (FP) PO SCH (21:07)
[2019-10-11] MEDS: MELATONIN 5 MG TABLETS PO SCH (21:07)
[2019-10-12] MEDS: hydrOXYzine PAMOATE 50 MG CAPSULE (FP) PO PRN ×5 (05:57→22:15)
[2019-10-12] MEDS: ACETAMINOPHEN 325 MG TABLET (FP) PO PRN (07:09)
[2019-10-12] MEDS: INSULIN (NOVOLOG) ASPART 100 UNITS/ML 10ML VIAL SQ SCH ×4 (07:11→21:02)
[2019-10-12] MEDS: PRENATAL VITAMINS W/ FOLIC ACID TABLET (FP) PO SCH (09:53)
[2019-10-12] MEDS: LISINOPRIL 5 MG TABLET (FP) PO SCH (09:54)
[2019-10-12] MEDS: METOPROLOL TARTRATE 25 MG TABLET (FP) PO SCH ×2 (09:54→20:59)
[2019-10-12] MEDS: levETIRAcetam 500 MG TABLET (FP) PO SCH ×2 (09:54→20:59)
[2019-10-12] MEDS: ASPIRIN COATED 81 MG TABLET.EC PO SCH (09:54)
[2019-10-12] MEDS: SERTRALINE HCL 50 MG TABLET (FP) PO SCH (09:54)
[2019-10-12] MEDS: NICOTINE 7 MG/24 HOURS TOPICAL PATCH TD SCH (09:57)
[2019-10-12] MEDS ORDERED: INSULIN SLIDING SCALE (NOVOLOG) 1 VIAL SQ ONE (11:37)
[2019-10-12] MEDS: IBUPROFEN 400 MG TABLET (FP) PO PRN (16:27)
[2019-10-12] MEDS: MELATONIN 5 MG TABLETS PO SCH (20:59)
[2019-10-12] MEDS: THIAMINE HCL 100 MG TABLET (FP) PO SCH (20:59)
[2019-10-13] MEDS: hydrOXYzine PAMOATE 50 MG CAPSULE (FP) PO PRN ×4 (05:54→18:00)
[2019-10-13] MEDS ORDERED: INSULIN SLIDING SCALE (NOVOLOG) 1 VIAL SQ ONE ×3 (07:43→16:35)
[2019-10-13] MEDS: INSULIN (NOVOLOG) ASPART 100 UNITS/ML 10ML VIAL SQ SCH ×4 (07:43→21:04)
[2019-10-13] MEDS: NICOTINE 7 MG/24 HOURS TOPICAL PATCH TD SCH (09:46)
[2019-10-13] MEDS: METOPROLOL TARTRATE 25 MG TABLET (FP) PO SCH ×2 (09:46→21:02)
[2019-10-13] MEDS: PRENATAL VITAMINS W/ FOLIC ACID TABLET (FP) PO SCH (09:46)
[2019-10-13] MEDS: LISINOPRIL 5 MG TABLET (FP) PO SCH (09:46)
[2019-10-13] MEDS: levETIRAcetam 500 MG TABLET (FP) PO SCH ×2 (09:46→21:02)
[2019-10-13] MEDS: ASPIRIN COATED 81 MG TABLET.EC PO SCH (09:47)
[2019-10-13] MEDS: SERTRALINE HCL 50 MG TABLET (FP) PO SCH (09:47)
[2019-10-13] MEDS: MELATONIN 5 MG TABLETS PO SCH (21:02)
[2019-10-13] MEDS: THIAMINE HCL 100 MG TABLET (FP) PO SCH (21:02)
[2019-10-14] MEDS: hydrOXYzine PAMOATE 50 MG CAPSULE (FP) PO PRN ×5 (05:49→21:09)
[2019-10-14] MEDS ORDERED: INSULIN SLIDING SCALE (NOVOLOG) 1 VIAL SQ ONE ×3 (06:46→22:11)
[2019-10-14] MEDS: INSULIN (NOVOLOG) ASPART 100 UNITS/ML 10ML VIAL SQ SCH ×4 (06:49→20:59)
[2019-10-14] MEDS ORDERED: PT OWN MED DRAWER 7, Y5N ONE (08:38)
[2019-10-14] MEDS: SERTRALINE HCL 50 MG TABLET (FP) PO SCH (10:04)
[2019-10-14] MEDS: METOPROLOL TARTRATE 25 MG TABLET (FP) PO SCH ×2 (10:04→21:07)
[2019-10-14] MEDS: ASPIRIN COATED 81 MG TABLET.EC PO SCH (10:04)
[2019-10-14] MEDS: levETIRAcetam 500 MG TABLET (FP) PO SCH ×2 (10:04→21:07)
[2019-10-14] MEDS: LISINOPRIL 5 MG TABLET (FP) PO SCH (10:04)
[2019-10-14] MEDS: NICOTINE 7 MG/24 HOURS TOPICAL PATCH TD SCH (10:04)
[2019-10-14] MEDS: PRENATAL VITAMINS W/ FOLIC ACID TABLET (FP) PO SCH (10:04)
[2019-10-14] MEDS: MELATONIN 5 MG TABLETS PO SCH (21:07)
[2019-10-14] MEDS: THIAMINE HCL 100 MG TABLET (FP) PO SCH (21:07)
[2019-10-15] MEDS: hydrOXYzine PAMOATE 50 MG CAPSULE (FP) PO PRN ×4 (05:50→18:06)
[2019-10-15] MEDS ORDERED: INSULIN SLIDING SCALE (NOVOLOG) 1 VIAL SQ ONE ×2 (06:13→11:11)
[2019-10-15] MEDS: INSULIN (NOVOLOG) ASPART 100 UNITS/ML 10ML VIAL SQ SCH ×4 (06:37→21:01)
[2019-10-15] MEDS ORDERED: PT OWN MED DRAWER 7, Y5N ONE (08:35)
[2019-10-15] MEDS: levETIRAcetam 500 MG TABLET (FP) PO SCH ×2 (09:43→21:00)
[2019-10-15] MEDS: ASPIRIN COATED 81 MG TABLET.EC PO SCH (09:43)
[2019-10-15] MEDS: METOPROLOL TARTRATE 25 MG TABLET (FP) PO SCH ×2 (09:43→21:00)
[2019-10-15] MEDS: NICOTINE 7 MG/24 HOURS TOPICAL PATCH TD SCH (09:43)
[2019-10-15] MEDS: PRENATAL VITAMINS W/ FOLIC ACID TABLET (FP) PO SCH (09:43)
[2019-10-15] MEDS: LISINOPRIL 5 MG TABLET (FP) PO SCH (09:44)
[2019-10-15] MEDS: SERTRALINE HCL 50 MG TABLET (FP) PO SCH (09:45)
[2019-10-15] MEDS: THIAMINE HCL 100 MG TABLET (FP) PO SCH (21:00)
[2019-10-15] MEDS: MELATONIN 5 MG TABLETS PO SCH (21:00)
[2019-10-16] MEDS: hydrOXYzine PAMOATE 50 MG CAPSULE (FP) PO PRN ×4 (06:19→18:57)
[2019-10-16] MEDS: INSULIN (NOVOLOG) ASPART 100 UNITS/ML 10ML VIAL SQ SCH ×4 (06:20→21:05)
[2019-10-16] MEDS: NICOTINE 7 MG/24 HOURS TOPICAL PATCH TD SCH (09:48)
[2019-10-16] MEDS: METOPROLOL TARTRATE 25 MG TABLET (FP) PO SCH ×2 (09:48→21:02)
[2019-10-16] MEDS: levETIRAcetam 500 MG TABLET (FP) PO SCH ×2 (09:48→21:02)
[2019-10-16] MEDS: ASPIRIN COATED 81 MG TABLET.EC PO SCH (09:48)
[2019-10-16] MEDS: LISINOPRIL 5 MG TABLET (FP) PO SCH (09:49)
[2019-10-16] MEDS: PRENATAL VITAMINS W/ FOLIC ACID TABLET (FP) PO SCH (09:49)
[2019-10-16] MEDS: SERTRALINE HCL 50 MG TABLET (FP) PO SCH (09:50)
[2019-10-16] MEDS ORDERED: INSULIN SLIDING SCALE (NOVOLOG) 1 VIAL SQ ONE (11:31)
[2019-10-16] MEDS: THIAMINE HCL 100 MG TABLET (FP) PO SCH (21:02)
[2019-10-16] MEDS: MELATONIN 5 MG TABLETS PO SCH (21:02)
[2019-10-17] MEDS: hydrOXYzine PAMOATE 50 MG CAPSULE (FP) PO PRN ×3 (06:17→17:39)
[2019-10-17] MEDS ORDERED: INSULIN SLIDING SCALE (NOVOLOG) 1 VIAL SQ ONE ×2 (06:37→16:33)
[2019-10-17] MEDS: INSULIN (NOVOLOG) ASPART 100 UNITS/ML 10ML VIAL SQ SCH ×4 (07:15→21:03)
[2019-10-17] MEDS ORDERED: PT OWN MED DRAWER 7, Y5N ONE (08:45)
[2019-10-17] MEDS: LISINOPRIL 5 MG TABLET (FP) PO SCH (09:54)
[2019-10-17] MEDS: PRENATAL VITAMINS W/ FOLIC ACID TABLET (FP) PO SCH (09:54)
[2019-10-17] MEDS: SERTRALINE HCL 50 MG TABLET (FP) PO SCH (09:54)
[2019-10-17] MEDS: METOPROLOL TARTRATE 25 MG TABLET (FP) PO SCH ×2 (09:54→21:01)
[2019-10-17] MEDS: ASPIRIN COATED 81 MG TABLET.EC PO SCH (09:54)
[2019-10-17] MEDS: levETIRAcetam 500 MG TABLET (FP) PO SCH ×2 (09:54→21:01)
[2019-10-17] MEDS: NICOTINE 7 MG/24 HOURS TOPICAL PATCH TD SCH (09:57)
[2019-10-17] MEDS: THIAMINE HCL 100 MG TABLET (FP) PO SCH (21:01)
[2019-10-17] MEDS: MELATONIN 5 MG TABLETS PO SCH (21:01)
[2019-10-18] MEDS: hydrOXYzine PAMOATE 50 MG CAPSULE (FP) PO PRN ×5 (05:58→22:11)
[2019-10-18] MEDS ORDERED: INSULIN SLIDING SCALE (NOVOLOG) 1 VIAL SQ ONE ×3 (06:45→16:26)
[2019-10-18] MEDS: INSULIN (NOVOLOG) ASPART 100 UNITS/ML 10ML VIAL SQ SCH ×4 (06:46→21:02)
[2019-10-18] MEDS ORDERED: PT OWN MED DRAWER 7, Y5N ONE (08:44)
[2019-10-18] MEDS: METOPROLOL TARTRATE 25 MG TABLET (FP) PO SCH ×2 (09:55→21:04)
[2019-10-18] MEDS: ASPIRIN COATED 81 MG TABLET.EC PO SCH (09:55)
[2019-10-18] MEDS: LISINOPRIL 5 MG TABLET (FP) PO SCH (09:56)
[2019-10-18] MEDS: PRENATAL VITAMINS W/ FOLIC ACID TABLET (FP) PO SCH (09:56)
[2019-10-18] MEDS: levETIRAcetam 500 MG TABLET (FP) PO SCH ×2 (09:56→21:04)
[2019-10-18] MEDS: NICOTINE 7 MG/24 HOURS TOPICAL PATCH TD SCH (09:56)
[2019-10-18] MEDS: SERTRALINE HCL 50 MG TABLET (FP) PO SCH (09:58)
--- NOTE | 2019-10-18 12:00 | PN ---
Jeanette Progress Note Note: Patient is scheduled for discharge on 10/22/19. Script for 30 days supply of Zoloft 75 mg.day will be electronically transmitted to [facility], [address] [place] [id number]
[2019-10-18] MEDS: THIAMINE HCL 100 MG TABLET (FP) PO SCH (21:04)
[2019-10-18] MEDS: MELATONIN 5 MG TABLETS PO SCH (21:04)
[2019-10-19] MEDS: hydrOXYzine PAMOATE 50 MG CAPSULE (FP) PO PRN ×4 (05:52→18:00)
[2019-10-19] MEDS: INSULIN (NOVOLOG) ASPART 100 UNITS/ML 10ML VIAL SQ SCH ×4 (07:08→21:06)
[2019-10-19] MEDS ORDERED: INSULIN SLIDING SCALE (NOVOLOG) 1 VIAL SQ ONE ×2 (07:08→16:39)
[2019-10-19] MEDS: NICOTINE 7 MG/24 HOURS TOPICAL PATCH TD SCH (09:41)
[2019-10-19] MEDS: ASPIRIN COATED 81 MG TABLET.EC PO SCH (09:41)
[2019-10-19] MEDS: levETIRAcetam 500 MG TABLET (FP) PO SCH ×2 (09:41→21:08)
[2019-10-19] MEDS: LISINOPRIL 5 MG TABLET (FP) PO SCH (09:41)
[2019-10-19] MEDS: METOPROLOL TARTRATE 25 MG TABLET (FP) PO SCH ×2 (09:41→21:08)
[2019-10-19] MEDS: PRENATAL VITAMINS W/ FOLIC ACID TABLET (FP) PO SCH (09:41)
[2019-10-19] MEDS: SERTRALINE HCL 50 MG TABLET (FP) PO SCH (09:41)
[2019-10-19] MEDS: THIAMINE HCL 100 MG TABLET (FP) PO SCH (21:08)
[2019-10-19] MEDS: MELATONIN 5 MG TABLETS PO SCH (21:08)
[2019-10-20] MEDS: hydrOXYzine PAMOATE 50 MG CAPSULE (FP) PO PRN ×2 (00:43→06:05)
[2019-10-20] MEDS: INSULIN (NOVOLOG) ASPART 100 UNITS/ML 10ML VIAL SQ SCH (06:06)
[2019-10-20] MEDS ORDERED: hydrOXYzine PAMOATE 50 MG CAPSULE (FP) PO SCH (08:45)
[2019-10-20] MEDS: LISINOPRIL 5 MG TABLET (FP) PO SCH (09:49)
[2019-10-20] MEDS: NICOTINE 7 MG/24 HOURS TOPICAL PATCH TD SCH (09:49)
[2019-10-20] MEDS: METOPROLOL TARTRATE 25 MG TABLET (FP) PO SCH (09:49)
[2019-10-20] MEDS: levETIRAcetam 500 MG TABLET (FP) PO SCH (09:49)
[2019-10-20] MEDS: SERTRALINE HCL 50 MG TABLET (FP) PO SCH (09:50)
[2019-10-20] MEDS: PRENATAL VITAMINS W/ FOLIC ACID TABLET (FP) PO SCH (09:50)
[2019-10-20] MEDS: ASPIRIN COATED 81 MG TABLET.EC PO SCH (09:50)
[2019-10-20 09:54] VITALS: BP 130/86; PULSE 71; TEMP 98.9
--- NOTE | 2019-10-20 11:15 | DS ---
[facility] Rehab Discharge Summary - [facility] Rehab Discharge Summary Admission Date: 10/08/19 Discharge Date: 10/20/19 - History Present History: Alcohol dependence, Opioid dependence Pertinent Past History: Mr. Liu is a 63 yo man who presented to [facility] after transfer from [facility] to complete an alcohol detox and rehab. H His workup at [facility] revealed no acute coronary syndrome. He had an Echo done: nl LV/RV, nl valves. He was treated for hypokalemia. The providers at [facility] recommend: continue ANALY, BB, CCB, ASA, hold statin due to elevated LFTs. PMH: HTN, HLD, IDDM, CECILIO (s/p stents x 3 ~2015) PSH: stents Psych: none SOC: with brother Legal: no - Discharge Physical Exam Vital Signs: Vital Signs Temperature 98.9 F 10/20/19 08:14 Pulse Rate 71 10/20/19 08:14 Respiratory Rate 18 10/20/19 08:14 Blood Pressure 130/86 10/20/19 08:14 O2 Sat by Pulse Oximetry (%) 97 10/20/19 06:03 Pertinent Admission Physical Exam Findings: Physical General Appearance: No Apparent Distress HEENTM: EOMI, Normocephalic, Respiratory: Respirations unlabored, no use of accessory muscles Neck: s, Supple Cardiology:S1, S2 Abdominal: +Bowel Sounds, Musculoskeletal:slightly unsteady, short steps, used cane Neurological: Alert + Ox 4 - Treatment Discharge Condition: Rehabilitated safely (Medically stable for discharge. Safety maintained while in rehab. Patient refused referral for aftercare, encouraged to go to AA and/or NA) - Medication Discharge Medications: Ambulatory Orders Aspirin [Ecotrin] 81 mg PO DAILY 09/29/19 Multivitamins [Multivit ([facility] Formulary)] 1 tab PO DAILY tab 10/01/19 Insulin Glargine,Hum.rec.anlog [Jamey Lester U-100] 16 unit SQ HS 10/04/19 Sertraline HCl [Zoloft -] 1.5 tab PO DAILY 30 Days #45 tablet 10/18/19 Amlodipine Besylate [Norvasc -] 10 mg PO DAILY #30 tablet 10/20/19 Aspirin Coated [Ecotrin -] 81 mg PO DAILY #30 tablet.ec 10/20/19 Folic Acid - 1 mg PO DAILY #30 tablet 10/20/19 Levetiracetam 500 mg PO BID #60 tablet 10/20/19 Lisinopril [Prinivil] 5 mg PO DAILY #30 tablet 10/20/19 Metoprolol Tartrate [Lopressor -] 25 mg PO BID #30 tablet 10/20/19 Thiamine HCl [Vitamin B1 -] 100 mg PO DAILY #30 tablet 10/20/19 - Medication-Assisted Treatment (MAT) Medication-Assisted Treatment (MAT): No - Discharge Instructions Diet, activity, other medical instructions: Diet: as appropriate Activity: as appropriate Other medical instructions: Please follow up with medical provider. Please attend AA or NA meetings. - Diagnosis (1) Alcohol use disorder Current Visit: Yes Status: Chronic (2) Opioid abuse Current Visit: Yes Status: Chronic - Follow-up Referral Minutes to complete discharge: 15 - AMA Did Patient Leave Against Medical Advice: No
[2019-10-20] MEDS ORDERED: PT OWN MED DRAWER 7, Y5N ONE (11:24)
== END 2019-10-20 11:25 | disposition home or self-care (01) | DRG 772 ==
LOC: YASAS 14:24 → Y3W 14:26
PROVIDERS: ADMIT Allergy & Immunology; ATTEND Allergy & Immunology
PROC: HZ42ZZZ Group Counseling for Substance Abuse Treatment, Cognitive-Behavioral (ICD-10-PCS; principal; 2019-10-07)
DX: F10.20 Alcohol dependence, uncomplicated (principal); F11.20 Opioid dependence, uncomplicated; F17.210 Nicotine dependence, cigarettes, uncomplicated; F32.9 Major depressive disorder, single episode, unspecified; E78.5 Hyperlipidemia, unspecified; E11.9 Type 2 diabetes mellitus without complications; Z79.4 Long term (current) use of insulin; G40.909 Epilepsy, unspecified, not intractable, without status epilepticus; I25.10 Atherosclerotic heart disease of native coronary artery without angina pectoris; I10 Essential (primary) hypertension; Z95.5 Presence of coronary angioplasty implant and graft; Z56.0 Unemployment, unspecified
CPT/HCPCS: 36415; 82962; 86803; 87389